=== PATIENT | female | born 2000 | race Caucasian/White ===

== ENCOUNTER 2020-10-07 07:06 | Emergency (ER) | payer OTHER, SELFPAY ==
--- NOTE | 2020-10-07 07:35 | ED.NAVMDI ---
HPI - Nausea/Vomiting/Diarrhea General Chief complaint: Nausea/Vomiting/Diarrhea Stated complaint: vomiting, abd pain Time Seen by Provider: 10/07/20 07:34 Source: patient and interpreter for the deaf Mode of arrival: ambulatory Limitations: no limitations History of Present Illness MD elicited complaint: nausea, vomiting and abdominal pain Onset (ago): day(s) (3) Description of vomiting: food contents and bilious Associated nausea: Yes Associated abdominal pain: Yes Location of pain: epigastric Pain consistency: constant Severity: moderate Quality: cramping Exacerbating factors: eating Relieving factors: none Context: marijuana use and other (had COVID vaccine first shot on Saturday) Associated symptoms: loss of appetite, malaise and nausea/vomiting Related Data Previous Rx's Medication Instructions Recorded ferrous sulfate 325 mg (65 mg 325 mg PO DAILY #30 tab 10/07/20 iron) tablet ondansetron 4 mg disintegrating 4 mg PO Q8H PRN #20 tab 10/07/20 tablet promethazine 25 mg rectal 25 mg SC Q6H PRN #12 ea 10/07/20 suppository Allergies Allergy/AdvReac Type Severity Reaction Status Date / Time No Known Allergies Allergy Unverified 10/29/19 19:20 [No Known Allergies*] Review of Systems Review of Systems: Constitutional : No Weight loss, No Fever, No Chills ENT/Mouth : No sore throat, No Rhinorrhea Eyes: No Swelling, No Redness Cardiovascular : No Chest Pain, No SOB, NoEdema Respiratory : No Cough, No Sputum, No Wheezing Gastrointestinal : Positive Nausea, Positive Vomiting, no Diarrhea, positive abdominal Pain, No Hematochezia, No Melena Genitourinary : No Dysuria, No Urinary Frequency, No Hematuria, No Urgency Musculoskeletal : No joint pain, No Myalgias, No Joint Swelling Skin : No Skin Lesions, No rash Neuro : No Weakness, No Numbness, No Dizziness, No Headache Psych : No Anxiety/Panic, No Depression Heme/Lymph: No Bruising, No Lymphadenopathy Endocrine : No Polyuria, No Polydipsia All other systems reviewed and are negative. Gastrointestinal: Gastrointestinal: Reports nausea PMFSH Past Medical History Attestation statement: The following information was validated with the patient. Medical History No known health problems Social History Social History (Updated 10/07/20 @ 07:51 by Vanessa Gonzalez DO) Patient Tobacco Use Status: Never used Tobacco Use of substances other than those prescribed or required for medical reasons: Yes Substance Use Type: Marijuana Advance Directives: No Advance Directives Information Provided: No Physical Exam Vital Signs: Vital Signs: Last Vital Signs Temp 98.7 F 10/07/20 07:36 Pulse 72 10/07/20 07:36 Resp 16 10/07/20 07:36 BP 133/81 10/07/20 07:36 Pulse Ox 98 10/07/20 07:36 Body Mass Index 25.4 Appearance: Alert. Oriented X3. Anxious mild acute distress. Active vomiting Eyes: Pupils equal, round and reactive to light. ENT: Pharynx normal. Neck: Normal inspection. Neck supple. CVS: Normal heart rate and rhythm. Pulses normal. Respiratory: No respiratory distress. Breath sounds normal. Abdomen: Soft and mild epigastric ttp no rebound or guarding Skin: Skin warm and dry. Normal skin color. Normal skin turgor. Extremities: No lower extremity edema. No calf ttp Neuro: Oriented X 3. No motor deficit. No sensory deficit. Course Course Course Narrative: H/H low denies GIB symptoms - likely heavy menses, n/v does not seem to correlate with anemia will start on Fe on her menses with a pad so guiac would have been positive, she denies GIB symptoms, she has been chewing ice for months now and has very heavy periods - suspect Fe loss from menorrhagia patient tolerating PO at this time - can be DC home MDM - Nausea/Vomiting/Diarrhea MDM Narrative Medical decision making narrative: 20 yo female with THC use recently now with c/o epigastric pain relieved with hot showers. Patient states it started after her COVID vaccine. At this time the patient will need labs IVF, IV anti-emetics, UA, dispo per results and findings. Did discuss this was likely due to THC use given her constellation of symptoms and heat to alleviate her pain. Lab Data Result diagrams: 10/07/20 07:59 10/07/20 07:59 Labs: Lab Results 10/07/20 10/07/20 10/07/20 Range/Units 07:59 07:59 07:59 WBC 10.0 (4.8-10.8) X10*3/uL RBC 4.17 L (4.20-5.50) X10*6/uL Hgb 7.2 L (12.0-16.0) g/dl Hct 25.6 L (37-47) % MCV 61.4 L (80-98) fL MCH 17.3 L (27.0-33.0) pg MCHC 28.1 L (31.0-35.0) g/dl RDW 21.7 H (11.0-16.0) % Plt Count 663 H (160-400) X10*3/uL MPV 9.6 (9.4-12.3) fL Immature Gran % (Auto) 0.4 (0.0-0.4) % Neut % (Auto) 88.3 H (45-73) % Lymph % (Auto) 7.3 L (20-40) % [place] % (Auto) 3.6 (2-11) % Eos % (Auto) 0.1 (0-4) % Baso % (Auto) 0.3 (0-2) % Lymph # (Auto) 0.7 L (1.2-4.9) X10*3/uL [place] # (Auto) 0.4 (0.1-1.2) X10*3/uL Eos # (Auto) 0.0 (0.0-0.4) X10*3/uL Baso # (Auto) 0.0 (0.0-0.2) X10*3/uL Abs Immat Gran (auto) 0.04 H (0.00-0.03) X10*3/uL Absolute Neuts (auto) 8.8 H (2.0-8.3) X10*3/uL Absolute Nucleated RBC 0.000 (0.0-0.012) X10*3/uL Nucleated RBC % (auto) 0.0 (0.0-0.2) /100WBC Smear Path Review SEE NOTE Sodium 139 (135-145) mmol/L Potassium 4.1 (3.3-5.1) mmol/L Chloride 108 (96-108) mmol/L Carbon Dioxide 21 L (22-29) mmol/L Anion Gap 14 (12-20) BUN 11 (9-16) mg/dL Creatinine 0.77 (0.5-1.4) mg/dL Estim Creat Clear Calc 109.8 Estimated GFR > 60 Random Glucose 139 H (60-115) mg/dL Calcium 9.6 (8.4-10.2) mg/dL Magnesium 2.2 (1.6-2.6) mg/dL Total Bilirubin 0.3 (0.0-1.0) mg/dL Direct Bilirubin 0.2 (0.0-0.5) mg/dL AST 16 (5-31) U/L ALT 6 (0-31) U/L Alkaline Phosphatase 49 (39-117) U/L Total Protein 7.9 (6.5-8.0) g/dL Albumin 4.5 (3.5-5.0) g/dL Lipase 16 (8-78) U/L Beta HCG, Quant < 2 mIU/mL Urine Color Urine Appearance Urine pH (5.0-8.0) Ur Specific [place] (1.005-1.025) Urine Protein (NEG-TRACE) MG/DL Urine Glucose (UA) (NEG) MG/DL Urine Ketones (NEG) MG/DL Urine Blood (NEG) Urine Nitrite (NEG) Ur Leukocyte Esterase (NEG) Urine Opiates Screen (Not Detect) Urine Fentanyl Screen (Not Detect) Ur Barbiturates Screen (Not Detect) Ur Phencyclidine Scrn (Not Detect) Ur Amphetamines Screen (Not Detect) U Benzodiazepines Scrn (Not Detect) Urine Cocaine Screen (Not Detect) U Marijuana (THC) Screen (Not Detect) COVID-19 (TUNDE) Negative (Negative) COVID-19 Clin Com See Note 10/07/20 10/07/20 Range/Units 10:10 10:10 WBC (4.8-10.8) X10*3/uL RBC (4.20-5.50) X10*6/uL Hgb (12.0-16.0) g/dl Hct (37-47) % MCV (80-98) fL MCH (27.0-33.0) pg MCHC (31.0-35.0) g/dl RDW (11.0-16.0) % Plt Count (160-400) X10*3/uL MPV (9.4-12.3) fL Immature Gran % (Auto) (0.0-0.4) % Neut % (Auto) (45-73) % Lymph % (Auto) (20-40) % [place] % (Auto) (2-11) % Eos % (Auto) (0-4) % Baso % (Auto) (0-2) % Lymph # (Auto) (1.2-4.9) X10*3/uL [place] # (Auto) (0.1-1.2) X10*3/uL Eos # (Auto) (0.0-0.4) X10*3/uL Baso # (Auto) (0.0-0.2) X10*3/uL Abs Immat Gran (auto) (0.00-0.03) X10*3/uL Absolute Neuts (auto) (2.0-8.3) X10*3/uL Absolute Nucleated RBC (0.0-0.012) X10*3/uL Nucleated RBC % (auto) (0.0-0.2) /100WBC Smear Path Review Sodium (135-145) mmol/L Potassium (3.3-5.1) mmol/L Chloride (96-108) mmol/L Carbon Dioxide (22-29) mmol/L Anion Gap (12-20) BUN (9-16) mg/dL Creatinine (0.5-1.4) mg/dL Estim Creat Clear Calc Estimated GFR Random Glucose (60-115) mg/dL Calcium (8.4-10.2) mg/dL Magnesium (1.6-2.6) mg/dL Total Bilirubin (0.0-1.0) mg/dL Direct Bilirubin (0.0-0.5) mg/dL AST (5-31) U/L ALT (0-31) U/L Alkaline Phosphatase (39-117) U/L Total Protein (6.5-8.0) g/dL Albumin (3.5-5.0) g/dL Lipase (8-78) U/L Beta HCG, Quant mIU/mL Urine Color RED Urine Appearance CLOUDY Urine pH 7.5 (5.0-8.0) Ur Specific [place] 1.015 (1.005-1.025) Urine Protein 1+ H (NEG-TRACE) MG/DL Urine Glucose (UA) NEG (NEG) MG/DL Urine Ketones 40 (NEG) MG/DL Urine Blood 3+ H (NEG) Urine Nitrite NEG (NEG) Ur Leukocyte Esterase TRACE H (NEG) Urine Opiates Screen Not Detected (Not Detect) Urine Fentanyl Screen Not Detected (Not Detect) Ur Barbiturates Screen Not Detected (Not Detect) Ur Phencyclidine Scrn Not Detected (Not Detect) Ur Amphetamines Screen Not Detected (Not Detect) U Benzodiazepines Scrn Not Detected (Not Detect) Urine Cocaine Screen Not Detected (Not Detect) U Marijuana (THC) Screen POSITIVE H (Not Detect) COVID-19 (TUNDE) (Negative) COVID-19 Clin Com Discharge Plan Discharge Clinical Impression: Vomiting Qualifiers: Vomiting type: unspecified Vomiting Intractability: non-intractable Nausea presence: with nausea Qualified Code(s): R11.2 - Nausea with vomiting, unspecified Iron deficiency anemia Qualifiers: Iron deficiency anemia type: other iron deficiency Qualified Code(s): D50.8 - Other iron deficiency anemias Instructions: Iron Deficiency Anemia (ED), Acute Nausea and Vomiting (ED) Additional Instructions: return to ED for any worsening symptoms or concerns Prescriptions: New promethazine 25 mg suppository 25 mg SC Q6H PRN (Reason: nausea and vomiting) Qty: 12 RF: 0 ondansetron 4 mg tablet,disintegrating 4 mg PO Q8H PRN (Reason: nausea and vomiting) Qty: 20 RF: 0 ferrous sulfate 325 mg (65 mg iron) tablet 325 mg PO DAILY Qty: 30 RF: 2 Referrals: Genevieve Dennison MD [Physician] - 2 weeks Stand Alone Forms: Work/School Release Print Language: Arabic
[2020-10-07 07:36] VITALS: BP 133/81; PULSE 72; RESP 16; TEMP 37.1; O2SAT 98; BMI 25.4
[2020-10-07 08:02] LABS: MANUAL DIFF FLAG NO
[2020-10-07] MEDS: diphenhydrAMINE HCL 50 MG/ML VIAL 25 MG IVPUSH (08:05)
[2020-10-07] MEDS: Metoclopramide HCl 10 MG/2 ML VIAL IVPUSH (08:05)
[2020-10-07] MEDS: Lactated Ringers 1,000 ML 999 ML IV (08:05)
[2020-10-07] MEDS: Famotidine/PF 20 MG/2 ML VIAL IVPUSH (08:05)
[2020-10-07 08:17] LABS: Basophils Percent Auto 0.3 % (0-2); Eosinophils Percent Auto 0.1 % (0-4); Imm Gran Abs Auto 0.04 X10*3/uL (0.00-0.03); Imm Gran Pct Auto 0.4 % (0.0-0.4); Lymphocytes Absolute Auto 0.7 X10*3/uL (1.2-4.9); Lymphocytes Percent Auto 7.3 % (20-40); Mean Corpuscular HGB Conc 28.1 g/dl (31.0-35.0); Mean Corpuscular Hemoglobin 17.3 pg (27.0-33.0); Mean Corpuscular Volume 61.4 fL (80-98); Mean Platelet Volume 9.6 fL (9.4-12.3); Monocytes Absolute Auto 0.4 X10*3/uL (0.1-1.2); Monocytes Percent Auto 3.6 % (2-11); Neutrophils Absolute Auto 8.8 X10*3/uL (2.0-8.3); Neutrophils Percent Auto 88.3 % (45-73); Platelet Count 663 X10*3/uL (160-400); Red Blood Count 4.17 X10*6/uL (4.20-5.50); Red Cell Distribution Width 21.7 % (11.0-16.0)
[2020-10-07 08:18] LABS: Hematocrit 25.6 % (37-47); Hemoglobin 7.2 g/dl (12.0-16.0)
[2020-10-07 08:27] LABS: COVID-19 Test Negative (Negative)
[2020-10-07 08:32] LABS: Alanine Aminotransferase 6 U/L (0-31); Albumin Level 4.5 g/dL (3.5-5.0); Alkaline Phosphatase 49 U/L (39-117); Anion Gap 14 (12-20); Aspartate Amino Transferase 16 U/L (5-31); Bilirubin Direct 0.2 mg/dL (0.0-0.5); Bilirubin Total 0.3 mg/dL (0.0-1.0); Blood Urea Nitrogen 11 mg/dL (9-16); Calcium 9.6 mg/dL (8.4-10.2); Carbon Dioxide 21 mmol/L (22-29); Chloride 108 mmol/L (96-108); Creatinine Clr Calc Pharmacy 109.8; Estimated Glomerular Filt Rate > 60; Glucose Random 139 mg/dL (60-115); Lipase 16 U/L (8-78); Magnesium 2.2 mg/dL (1.6-2.6); Potassium 4.1 mmol/L (3.3-5.1); Sodium 139 mmol/L (135-145); Total Protein 7.9 g/dL (6.5-8.0)
[2020-10-07 09:39] LABS: HCG Quantitative < 2 mIU/mL
[2020-10-07] MEDS: ondansetron HCL 4 MG/2 ML VIAL IVPUSH (10:07)
[2020-10-07 10:35] LABS: Appearance Urine CLOUDY; Color Urine RED; Glucose Urine UA NEG (NEG); Leukocyte Esterase Urine TRACE (NEG); Nitrite Urine NEG (NEG); PH 7.5 (5.0-8.0); Specific Gravity - Urine 1.015 (1.005-1.025); UACC Culture Trigger YES; Urine Blood 3+ (NEG); Urine Ketones 40 MG/DL (NEG); Urine Protein 1+ MG/DL (NEG-TRACE)
[2020-10-07 10:46] LABS: Amphetamine Screen Urine Not Detected (Not Detect); Barbiturates, Urine Not Detected (Not Detect); Benzodiazepines Screen Urine Not Detected (Not Detect); Cannabinoid Screen Urine POSITIVE (Not Detect); Cocaine Screen Urine Not Detected (Not Detect); Fentanyl, urine Not Detected (Not Detect); Opiate Screen Urine Not Detected (Not Detect); Phencyclidine Screen Urine Not Detected (Not Detect)
[2020-10-07 11:03] LABS: Bacteria Urine TRACE /LPF; RBC Urine TNTC /HPF (0); Squamous Epithelial Cell Urine 1+ /LPF
== END 2020-10-07 11:06 | disposition home or self-care (01) ==
PROVIDERS: Emergency Provider Emergency Medicine
DX: D50.8 Other iron deficiency anemias (principal); R11.2 Nausea with vomiting, unspecified; R10.13 Epigastric pain; Z20.822 Contact with and (suspected) exposure to COVID-19; F12.90 Cannabis use, unspecified, uncomplicated
CPT/HCPCS: 36415; 80048; 80076; 80307; 81001; 83690; 83735; 84702; 85025; 87086; 87147; 87635; 96361; 96374; 96375; 99284; J1200; J2405; J2765

== ENCOUNTER 2020-10-07 16:11 | Emergency (ER) | payer OTHER, SELFPAY | END 2020-10-07 17:53 | disposition left against medical advice (07) | PROVIDERS: Emergency Provider Emergency Medicine | DX: Z04.1 Encounter for examination and observation following transport accident (principal); M54.9 Dorsalgia, unspecified; M54.2 Cervicalgia ==

== ENCOUNTER → 2020-10-26 14:06 | Outpatient (BNV) | payer OTHER, SELFPAY | PROVIDERS: Visit Provider Internal Medicine | DX: D50.9 Iron deficiency anemia, unspecified (principal) | CPT/HCPCS: 99203; 99212; 99213; 99214 ==

== ENCOUNTER 2020-11-24 08:17 | Outpatient (REF) | payer OTHER, SELFPAY | END 2020-11-24 08:18 | disposition home or self-care (01) | LOC: HO.MDS 08:17 | PROVIDERS: PCP Physician Assistant; Visit Provider Internal Medicine | DX: D50.9 Iron deficiency anemia, unspecified (principal) | CPT/HCPCS: 96365; 96375; J1200; J1750; J2405 ==

== ENCOUNTER 2021-02-16 08:35 | Outpatient (REF) | payer OTHER, SELFPAY | END 2021-02-16 08:36 | disposition home or self-care (01) | LOC: HO.MDS 08:35 | PROVIDERS: Visit Provider Internal Medicine | DX: D50.9 Iron deficiency anemia, unspecified (principal) | CPT/HCPCS: 96365; 96375; J2916; Q0163 ==

== ENCOUNTER 2021-03-03 10:56 | Outpatient (REF) | payer OTHER, SELFPAY | END 2021-03-03 10:57 | disposition home or self-care (01) | LOC: HO.MDS 10:56 | PROVIDERS: Visit Provider Internal Medicine | DX: D50.9 Iron deficiency anemia, unspecified (principal) | CPT/HCPCS: 96365; 96375; J2916; Q0163 ==

== ENCOUNTER 2021-04-17 10:00 | Outpatient (REF) | payer OTHER, SELFPAY | END 2021-04-17 10:01 | disposition home or self-care (01) | LOC: HO.MDS 10:00 | PROVIDERS: Visit Provider Internal Medicine | DX: D50.9 Iron deficiency anemia, unspecified (principal) | CPT/HCPCS: 96365; 96375; J2916; Q0163 ==

== ENCOUNTER 2021-05-09 12:42 | Outpatient (REF) | payer OTHER, SELFPAY | END 2021-05-09 12:43 | disposition home or self-care (01) | LOC: HO.MDS 12:42 | PROVIDERS: Visit Provider Internal Medicine | DX: D50.9 Iron deficiency anemia, unspecified (principal) | CPT/HCPCS: 96365; 96375; J2916; Q0163 ==

== ENCOUNTER 2021-05-17 08:32 | Outpatient (REF) | payer OTHER, SELFPAY | END 2021-05-17 08:33 | disposition home or self-care (01) | LOC: HO.MDS 08:32 | PROVIDERS: Visit Provider Internal Medicine | DX: D50.9 Iron deficiency anemia, unspecified (principal) | CPT/HCPCS: 96365; 96375; J2916; Q0163 ==

== ENCOUNTER 2021-05-25 12:58 | Outpatient (REF) | payer OTHER, SELFPAY | END 2021-05-25 12:59 | disposition home or self-care (01) | LOC: HO.MDS 12:58 | PROVIDERS: Visit Provider Internal Medicine | DX: D50.9 Iron deficiency anemia, unspecified (principal) | CPT/HCPCS: 96365; 96375; J2916; Q0163 ==

== ENCOUNTER 2021-11-08 11:50 | Outpatient (REF) | payer OTHER, SELFPAY | END 2021-11-08 11:51 | disposition home or self-care (01) | LOC: HO.MDS 11:50 | PROVIDERS: Visit Provider Internal Medicine | DX: D50.9 Iron deficiency anemia, unspecified (principal) | CPT/HCPCS: 96365; J1756 ==

== ENCOUNTER 2022-05-13 23:00 | Emergency (ER) | payer OTHER, SELFPAY ==
[2022-05-13 23:08] VITALS: BP 145/85; PULSE 89; RESP 18; TEMP 36.7; O2SAT 99; BMI 25.6
[2022-05-14 01:39] LABS: Basophils Percent Auto 0.3 % (0-2); Hematocrit 40.7 % (37.0-47.0); Hemoglobin 13.5 g/dl (12.0-16.0); Imm Gran Abs Auto 0.04 X10*3/uL (0.00-0.03); Imm Gran Pct Auto 0.3 % (0.0-0.4); Lymphocytes Absolute Auto 0.9 X10*3/uL (1.2-4.9); Lymphocytes Percent Auto 7.2 % (20-40); MANUAL DIFF FLAG NO; Mean Corpuscular HGB Conc 33.2 g/dl (31.0-35.0); Mean Corpuscular Hemoglobin 28.6 pg (27.0-33.0); Mean Corpuscular Volume 86.2 fL (80.0-98.0); Mean Platelet Volume 9.9 fL (9.4-12.3); Monocytes Absolute Auto 0.4 X10*3/uL (0.1-1.2); Monocytes Percent Auto 2.8 % (2-11); Neutrophils Absolute Auto 11.3 x10*3/uL (2.0-8.3); Neutrophils Percent Auto 89.4 % (45-73); Platelet Count 331 X10*3/uL (160-400); Red Blood Count 4.72 X10*6/uL (4.20-5.50); Red Cell Distribution Width 13.6 % (11.0-16.0); White Blood Count 12.6 X10*3/uL (4.8-10.8)
[2022-05-14 01:56] LABS: Alanine Aminotransferase 11 U/L (0-31); Albumin Level 4.8 g/dL (3.5-5.0); Alkaline Phosphatase 59 U/L (39-117); Anion Gap 15 (12-20); Aspartate Amino Transferase 13 U/L (5-31); Bilirubin Total 0.5 mg/dL (0.0-1.0); Blood Urea Nitrogen 9 mg/dL (9-16); Calcium 9.6 mg/dL (8.4-10.2); Carbon Dioxide 20 mmol/L (22-29); Chloride 106 mmol/L (96-108); Creatinine Clr Calc Pharmacy 103.9; Estimated Glomerular Filt Rate > 60; Glucose Random 120 mg/dL (60-115); Lipase 9 U/L (8-78); Potassium 3.8 mmol/L (3.3-5.1); Sodium 137 mmol/L (135-145)
--- NOTE | 2022-05-14 02:20 | ED.GENADULT ---
HPI - General Adult General Chief complaint: Abdominal Pain Stated complaint: low iron, abd pain, vomiting Time Seen by Provider: 05/14/22 02:09 Source: patient Mode of arrival: ambulatory Limitations: language barrier History of Present Illness HPI narrative: Patient multiple complaints gets iron transfusion for anemia which she got last month due for her menstrual periods feeling dizzy blurred vision constipated for last 3 days nausea unable to sleep. No urinary complaints no fever or chills no cold symptoms Related Data Previous Rx's Medication Instructions Recorded ondansetron 4 mg disintegrating 4 mg PO Q8H PRN nausea and 10/07/20 tablet vomiting #20 tabs Allergies Allergy/AdvReac Type Severity Reaction Status Date / Time dextran sulfate Allergy n/v Verified 05/13/22 23:13 tachycardia cough Review of Systems Review of Systems: Yes all other systems are reviewed and are negative [facility] Past Medical History Medical History No known health problems Surgical History No history of previous surgery Social History Social History Household Members: Family Housing: Apartment Are you a primary child care lead teacher to a significant other at home: No Do you presently have visiting nurse or other home services: No Alcohol intake: former Patient Tobacco Use Status: Never used Tobacco Substance Use Type: Marijuana Advance Directives: No Advance Directives Information Provided: No service: No Current occupational status: unemployed Physical Exam ED Vital Signs: Vital Signs - 24 hr 05/13/22 23:08 05/14/22 04:00 Temperature 98.1 F 98.2 F Pulse Rate 89 84 Respiratory Rate 18 14 Blood Pressure 145/85 H 105/67 Pulse Oximetry 99 97 Oxygen Delivery Method Room Air Room Air BMI result Body Mass Index 25.6 Appearance: Alert. Oriented X3. No acute distress and she. Eyes: No pallor or icterus ENT: Pharynx normal. Oral Mucosa moist Neck: Normal inspection. Neck supple. CVS: Normal heart rate and rhythm. Pulses normal. Respiratory: No respiratory distress. Equal air entry bilateral, no wheezing/rales/rhonchi Abdomen: Soft and nontender. Bowel sounds are present, no mass palpable, no CVA tenderness Skin: Skin warm and dry. Normal skin color. Normal skin turgor. Extremities: No lower extremity edema. No calf tenderness Neuro: Oriented X 3. No motor deficit. Medications Administered Discontinued Medications Generic Name Dose Route Start Last Admin Trade Name Freq PRN Reason Stop Dose Admin Sodium Chloride 1,000 mls @ 999 mls/hr 05/14/22 02:27 05/14/22 04:07 Ns IV 05/14/22 03:27 Infused .Q1H1M ONE Infusion Magnesium Hydroxide 30 ml 05/14/22 02:27 05/14/22 02:44 Milk Of Magnesia 30 Ml Oral.Susp PO 05/14/22 02:28 30 ml ONCE ONE Administration Ondansetron HCl 4 mg 05/14/22 02:27 05/14/22 02:44 Ondansetron Hcl 4 Mg/2 Ml Vial IVPUSH 05/14/22 02:28 4 mg ONCE ONE Administration Medical Decision Making Medical Decision Making [facility] Narrative: Patient nonspecific multiple complaints workup negative improved after IV fluids was given milk of magnesia for constipation advised to follow-up with PCP Lab Data [facility] Lab Attestation statement: I reviewed the patient's lab results. 05/14/22 01:34 05/14/22 01:34 Labs: Lab Results 05/14/22 05/14/22 05/14/22 Range/Units 01:34 01:34 02:51 WBC 12.6 H (4.8-10.8) X10*3/uL RBC 4.72 (4.20-5.50) X10*6/uL Hgb 13.5 (12.0-16.0) g/dl Hct 40.7 (37.0-47.0) % MCV 86.2 (80.0-98.0) fL MCH 28.6 (27.0-33.0) pg MCHC 33.2 (31.0-35.0) g/dl RDW 13.6 (11.0-16.0) % Plt Count 331 (160-400) X10*3/uL MPV 9.9 (9.4-12.3) fL Immature Gran % (Auto) 0.3 (0.0-0.4) % Neut % (Auto) 89.4 H (45-73) % Lymph % (Auto) 7.2 L (20-40) % [place] % (Auto) 2.8 (2-11) % Eos % (Auto) 0.0 (0-4) % Baso % (Auto) 0.3 (0-2) % Lymph # (Auto) 0.9 L (1.2-4.9) X10*3/uL [place] # (Auto) 0.4 (0.1-1.2) X10*3/uL Eos # (Auto) 0.0 (0.0-0.4) X10*3/uL Baso # (Auto) 0.0 (0.0-0.2) X10*3/uL Abs Immat Gran (auto) 0.04 H (0.00-0.03) X10*3/uL Absolute Neuts (auto) 11.3 H (2.0-8.3) x10*3/uL Absolute Nucleated RBC 0.000 (0.0-0.012) X10*3/uL Nucleated RBC % (auto) 0.0 (0.0-0.2) /100WBC Sodium 137 (135-145) mmol/L Potassium 3.8 (3.3-5.1) mmol/L Chloride 106 (96-108) mmol/L Carbon Dioxide 20 L (22-29) mmol/L Anion Gap 15 (12-20) BUN 9 (9-16) mg/dL Creatinine 0.75 (0.5-1.4) mg/dL Estim Creat Clear Calc 103.9 Estimated GFR > 60 Random Glucose 120 H (60-115) mg/dL Calcium 9.6 (8.4-10.2) mg/dL Total Bilirubin 0.5 (0.0-1.0) mg/dL AST 13 (5-31) U/L ALT 11 (0-31) U/L Alkaline Phosphatase 59 (39-117) U/L Total Protein 8.0 (6.5-8.0) g/dL Albumin 4.8 (3.5-5.0) g/dL Lipase 9 (8-78) U/L Urine Color Yellow Urine Appearance Clear Urine pH 7.0 (5.0-9.0) Ur Specific [place] >= 1.030 H (1.005-1.025) Urine Protein Trace (Neg-Trace) mg/dL Urine Glucose (UA) Negative (Negative) mg/dL Urine Ketones >=160 (Negative) mg/dL Urine Blood Negative (Negative) Urine Nitrite Negative (Negative) Ur Leukocyte Esterase Negative (Negative) Urine Test (NEGATIVE) 05/14/22 Range/Units 02:51 WBC (4.8-10.8) X10*3/uL RBC (4.20-5.50) X10*6/uL Hgb (12.0-16.0) g/dl Hct (37.0-47.0) % MCV (80.0-98.0) fL MCH (27.0-33.0) pg MCHC (31.0-35.0) g/dl RDW (11.0-16.0) % Plt Count (160-400) X10*3/uL MPV (9.4-12.3) fL Immature Gran % (Auto) (0.0-0.4) % Neut % (Auto) (45-73) % Lymph % (Auto) (20-40) % [place] % (Auto) (2-11) % Eos % (Auto) (0-4) % Baso % (Auto) (0-2) % Lymph # (Auto) (1.2-4.9) X10*3/uL [place] # (Auto) (0.1-1.2) X10*3/uL Eos # (Auto) (0.0-0.4) X10*3/uL Baso # (Auto) (0.0-0.2) X10*3/uL Abs Immat Gran (auto) (0.00-0.03) X10*3/uL Absolute Neuts (auto) (2.0-8.3) x10*3/uL Absolute Nucleated RBC (0.0-0.012) X10*3/uL Nucleated RBC % (auto) (0.0-0.2) /100WBC Sodium (135-145) mmol/L Potassium (3.3-5.1) mmol/L Chloride (96-108) mmol/L Carbon Dioxide (22-29) mmol/L Anion Gap (12-20) BUN (9-16) mg/dL Creatinine (0.5-1.4) mg/dL Estim Creat Clear Calc Estimated GFR Random Glucose (60-115) mg/dL Calcium (8.4-10.2) mg/dL Total Bilirubin (0.0-1.0) mg/dL AST (5-31) U/L ALT (0-31) U/L Alkaline Phosphatase (39-117) U/L Total Protein (6.5-8.0) g/dL Albumin (3.5-5.0) g/dL Lipase (8-78) U/L Urine Color Urine Appearance Urine pH (5.0-9.0) Ur Specific [place] (1.005-1.025) Urine Protein (Neg-Trace) mg/dL Urine Glucose (UA) (Negative) mg/dL Urine Ketones (Negative) mg/dL Urine Blood (Negative) Urine Nitrite (Negative) Ur Leukocyte Esterase (Negative) Urine Test NEGATIVE (NEGATIVE) Discharge Plan Discharge Clinical Impression: Weakness Patient Disposition: Home, Self-Care Instructions: Weakness (ED) Additional Instructions: Drink plenty of fluids Follow-up with your PCP Your lab workup is normal , you are not anemic Prescriptions: No Action ondansetron 4 mg tablet,disintegrating 4 mg PO Q8H PRN (Reason: nausea and vomiting) Qty: 20 0RF
[2022-05-14] MEDS: 0.9 % Sodium Chloride 1,000 ML 999 ML IV (02:40)
[2022-05-14] MEDS: ondansetron HCL 4 MG/2 ML VIAL IVPUSH (02:44)
[2022-05-14] MEDS: Milk of Magnesia 30 ML ORAL.SUSP PO (02:44)
--- NOTE | 2022-05-14 02:48 | PC.NURSE ---
late entry- iv placed by this rn, bloodwork obtained and sent down to lab. partner at [facility].
--- NOTE | 2022-05-14 02:48 | PC.NURSE ---
pt medicated according to mar
[2022-05-14 02:59] LABS: Appearance Urine Clear; Color Urine Yellow; Glucose Urine UA Negative (Negative); Leukocyte Esterase Urine Negative (Negative); Nitrite Urine Negative (Negative); Specific Gravity - Urine >= 1.030 (1.005-1.025); Urine Blood Negative (Negative); Urine Ketones >=160 mg/dL (Negative); Urine Protein Trace mg/dL (Neg-Trace)
[2022-05-14 03:00] LABS: UPreg QC Valid YES; Urine Pregnancy NEGATIVE (NEGATIVE)
[2022-05-14 04:00] VITALS: BP 105/67; PULSE 84; RESP 14; TEMP 36.8; O2SAT 97
--- NOTE | 2022-05-14 04:32 | PC.NURSE ---
iv removed at discharge. counselor aid utilized at discharge. pt provided with discharge packet. pt verbalized understanding of discharge plan. pt ambulatory at discharge. pt skin pwd
== END 2022-05-14 04:43 | disposition home or self-care (01) ==
PROVIDERS: Emergency Provider Internal Medicine; PCP Emergency Medicine Emergency Medical Services
DX: R53.1 Weakness (principal); D64.9 Anemia, unspecified; R42 Dizziness and giddiness; Z79.899 Other long term (current) drug therapy
CPT/HCPCS: 36415; 80053; 81003; 81025; 83690; 85025; 96361; 96374; 99284; J2405

== ENCOUNTER 2022-05-15 12:31 | Emergency (ER) | payer OTHER, SELFPAY ==
[2022-05-15 12:55] VITALS: BP 112/79; PULSE 80; RESP 19; TEMP 36.6; O2SAT 98; BMI 24.3
--- NOTE | 2022-05-15 13:03 | ED_ITS ---
HPI - General Adult General Chief complaint: Headache Stated complaint: Stomach LB\ow Blood Pressure Time Seen by Provider: 05/15/22 13:31 Related Data Previous Rx's ?Medication ?Instructions ?Recorded ondansetron 4 mg disintegrating 4 mg PO Q8H PRN nausea and 10/07/20 tablet vomiting #20 tabs ondansetron 4 mg disintegrating 4 mg PO Q8H PRN nausea and 05/15/22 tablet vomiting #14 tabs omeprazole 20 mg capsule,delayed 20 mg PO DAILY 30 days #30 caps 05/16/22 release ondansetron 4 mg disintegrating 4 mg PO Q8H PRN nausea and 01/30/23 tablet vomiting #20 tabs Allergies Allergy/AdvReac Type Severity Reaction Status Date / Time dextran sulfate Allergy n/v Verified 01/30/23 11:38 tachycardia cough PMFSH Past Medical History Medical History No known health problems Surgical History No history of previous surgery Social History Social History Household Members: Family Housing: Apartment Are you a primary health care facilities inspector to a significant other at home: No Do you presently have visiting nurse or other home services: No Alcohol intake: never Patient Tobacco Use Status: Never used Tobacco Substance Use Type: Marijuana Advance Directives: No service: No Current occupational status: unemployed Physical Exam ED Vital Signs: Vital Signs - 24 hr 05/15/22 12:55 Temperature 98 F Pulse Rate 80 Respiratory Rate 19 Blood Pressure 112/79 Pulse Oximetry 98 Oxygen Delivery Method Room Air BMI result Body Mass Index 24.3 Course Course Course Narrative: This is an RME: Additional HPI, ROS, PE not included below will be deferred to primary provider. 21-year-old female history of iron deficiency anemia presents for evaluation of fatigue, malaise headache, and diffuse abdominal pain for past 2 days. She reports she is unable to keep anything down by mouth. Was seen here yesterday and diagnosed with weakness. Is not feeling better. Physical exam benign. Plan labs, urine, test, viral test Medications Administered Discontinued Medications Generic Name Dose Route Start Last Admin Trade Name Freq PRN Reason Stop Dose Admin Ketorolac Tromethamine 30 mg 05/15/22 13:04 05/15/22 13:52 Ketorolac Tromethamine 15 Mg/Ml Vial IM 05/15/22 13:05 30 mg ONCE ONE Administration Medical Decision Making Lab Data 05/15/22 13:15 05/15/22 13:15 Labs: Lab Results 05/15/22 05/15/22 Range/Units 13:15 13:49 WBC 8.3 (4.8-10.8) X10*3/uL RBC 4.78 (4.20-5.50) X10*6/uL Hgb 13.4 (12.0-16.0) g/dl Hct 40.7 (37.0-47.0) % MCV 85.1 (80.0-98.0) fL MCH 28.0 (27.0-33.0) pg MCHC 32.9 (31.0-35.0) g/dl RDW 13.5 (11.0-16.0) % Plt Count 332 (160-400) X10*3/uL MPV 9.3 L (9.4-12.3) fL Immature Gran % (Auto) 0.1 (0.0-0.4) % Neut % (Auto) 66.5 (45-73) % Lymph % (Auto) 26.3 (20-40) % [place] % (Auto) 6.5 (2-11) % Eos % (Auto) 0.2 (0-4) % Baso % (Auto) 0.4 (0-2) % Lymph # (Auto) 2.2 (1.2-4.9) X10*3/uL [place] # (Auto) 0.5 (0.1-1.2) X10*3/uL Eos # (Auto) 0.0 (0.0-0.4) X10*3/uL Baso # (Auto) 0.0 (0.0-0.2) X10*3/uL Abs Immat Gran (auto) 0.01 (0.00-0.03) X10*3/uL Absolute Neuts (auto) 5.5 (2.0-8.3) x10*3/uL Absolute Nucleated RBC 0.000 (0.0-0.012) X10*3/uL Nucleated RBC % (auto) 0.0 (0.0-0.2) /100WBC Sodium 140 (135-145) mmol/L Potassium 3.8 (3.3-5.1) mmol/L Chloride 106 (96-108) mmol/L Carbon Dioxide 21 L (22-29) mmol/L Anion Gap 17 (12-20) BUN 7 L (9-16) mg/dL Creatinine 0.79 (0.5-1.4) mg/dL Estim Creat Clear Calc 96.3 Estimated GFR > 60 Random Glucose 96 (60-115) mg/dL Calcium 9.6 (8.4-10.2) mg/dL Magnesium 2.2 (1.6-2.6) mg/dL Total Bilirubin 0.6 (0.0-1.0) mg/dL AST 12 (5-31) U/L ALT 8 (0-31) U/L Alkaline Phosphatase 56 (39-117) U/L Total Protein 7.7 (6.5-8.0) g/dL Albumin 4.5 (3.5-5.0) g/dL Urine Color Yellow Urine Appearance Clear Urine pH 6.0 (5.0-9.0) Ur Specific [place] 1.025 (1.005-1.025) Urine Protein Negative (Neg-Trace) mg/dL Urine Glucose (UA) Negative (Negative) mg/dL Urine Ketones Trace (Negative) mg/dL Urine Blood Negative (Negative) Urine Nitrite Negative (Negative) Ur Leukocyte Esterase Negative (Negative) Urine Test NEGATIVE (NEGATIVE) COVID-19 (TUNDE) Negative (Negative) COVID-19 Clin Com See Note Influenza Type A (VINITA) Negative (Negative) Influenza Type B (VINITA) Negative (Negative) Influenza A & B Note See Note Discharge Plan Discharge Clinical Impression: Headache Patient Disposition: Home, Self-Care Instructions: Acute Headache (ED) Prescriptions: New ondansetron 4 mg tablet,disintegrating 4 mg PO Q8H PRN (Reason: nausea and vomiting) Qty: 14 0RF No Action ondansetron 4 mg tablet,disintegrating 4 mg PO Q8H PRN (Reason: nausea and vomiting) Qty: 20 0RF ondansetron 4 mg tablet,disintegrating 4 mg PO Q8H PRN (Reason: nausea and vomiting) Qty: 20 0RF omeprazole 20 mg capsule,delayed release(DR/EC) 20 mg PO DAILY 30 Days Qty: 30 0RF Interventions: ED Discharge Assessment Last Done: 05/15/22 16:43 Discharge Date/Time: 05/15/22 16:46 Print Language: Mohawk
[2022-05-15 13:19] LABS: MANUAL DIFF FLAG NO
[2022-05-15 13:24] LABS: Basophils Percent Auto 0.4 % (0-2); Eosinophils Percent Auto 0.2 % (0-4); Hematocrit 40.7 % (37.0-47.0); Hemoglobin 13.4 g/dl (12.0-16.0); Imm Gran Abs Auto 0.01 X10*3/uL (0.00-0.03); Imm Gran Pct Auto 0.1 % (0.0-0.4); Lymphocytes Absolute Auto 2.2 X10*3/uL (1.2-4.9); Lymphocytes Percent Auto 26.3 % (20-40); Mean Corpuscular HGB Conc 32.9 g/dl (31.0-35.0); Mean Corpuscular Volume 85.1 fL (80.0-98.0); Mean Platelet Volume 9.3 fL (9.4-12.3); Monocytes Absolute Auto 0.5 X10*3/uL (0.1-1.2); Monocytes Percent Auto 6.5 % (2-11); Neutrophils Absolute Auto 5.5 x10*3/uL (2.0-8.3); Neutrophils Percent Auto 66.5 % (45-73); Platelet Count 332 X10*3/uL (160-400); Red Blood Count 4.78 X10*6/uL (4.20-5.50); Red Cell Distribution Width 13.5 % (11.0-16.0); White Blood Count 8.3 X10*3/uL (4.8-10.8)
[2022-05-15 13:45] LABS: Alanine Aminotransferase 8 U/L (0-31); Albumin Level 4.5 g/dL (3.5-5.0); Alkaline Phosphatase 56 U/L (39-117); Anion Gap 17 (12-20); Aspartate Amino Transferase 12 U/L (5-31); Bilirubin Total 0.6 mg/dL (0.0-1.0); Blood Urea Nitrogen 7 mg/dL (9-16); Calcium 9.6 mg/dL (8.4-10.2); Carbon Dioxide 21 mmol/L (22-29); Chloride 106 mmol/L (96-108); Creatinine Clr Calc Pharmacy 96.3; Estimated Glomerular Filt Rate > 60; Glucose Random 96 mg/dL (60-115); Magnesium 2.2 mg/dL (1.6-2.6); Potassium 3.8 mmol/L (3.3-5.1); Sodium 140 mmol/L (135-145); Total Protein 7.7 g/dL (6.5-8.0)
[2022-05-15 13:49] LABS: COVID-19 Test Negative (Negative); IDNOW Serial# 9DB6401D; IDNOW Serial# BCCEAD1C; Influenza A Negative (Negative); Influenza B2 Negative (Negative)
[2022-05-15] MEDS: Ketorolac Tromethamine 15 MG/ML VIAL 30 MG IM (13:52)
--- NOTE | 2022-05-15 13:54 | PC.NURSE ---
patient a&ox3, vss, pt states she has had a headache that began this morning, pt did not take medication at home for the headache, pt is light sensitive and has had associated nausea. neuro intact, pt medicated with IM pain medication, call [facility] within reach, will continue to monitor.
[2022-05-15 14:12] LABS: Appearance Urine Clear; Color Urine Yellow; Glucose Urine UA Negative (Negative); Leukocyte Esterase Urine Negative (Negative); Nitrite Urine Negative (Negative); Specific Gravity - Urine 1.025 (1.005-1.025); UPreg QC Valid YES; Urine Blood Negative (Negative); Urine Ketones Trace mg/dL (Negative); Urine Pregnancy NEGATIVE (NEGATIVE); Urine Protein Negative (Neg-Trace)
[2022-05-15 15:16] VITALS: BP 112/77; PULSE 73; RESP 14; TEMP 37; O2SAT 98
--- NOTE | 2022-05-15 15:18 | ED.HA ---
HPI - Headache General Chief Complaint: Headache Stated Complaint: Stomach LB\ow Blood Pressure Time Seen by Provider: 05/15/22 13:31 Source: patient and family Limitations: no limitations History of Present Illness HPI Narrative: Patient presenting with headache. She is seen here yesterday with gastroenteritis type picture. Nausea vomiting and watery diarrhea. Sick contacts with similar problems. Now presents with headache. She has just started to eat today. No prior history of headaches or migraines. Headache is starting to feel better now. No current nausea or vomiting. No weakness numbness paresthesias. No fevers or chills. Headache has been present for a few days and was gradual in onset Related Data Previous Rx's Medication Instructions Recorded ondansetron 4 mg disintegrating 4 mg PO Q8H PRN nausea and 10/07/20 tablet vomiting #20 tabs ondansetron 4 mg disintegrating 4 mg PO Q8H PRN nausea and 05/15/22 tablet vomiting #14 tabs Allergies Allergy/AdvReac Type Severity Reaction Status Date / Time dextran sulfate Allergy n/v Verified 05/15/22 12:55 tachycardia cough Review of Systems Constitutional: Comments: No fevers or chills Cardiovascular: Comments: No chest pain Respiratory: Comments: No cough or dyspnea Gastrointestinal: Comments: Nausea vomiting and diarrhea over the last few days. Mostly resolved at present Integumentary/Breasts: Comments: No rash Neurologic: Comments: No weakness numbness or paresthesias PENDING SALE TO [facility] Past Medical History Medical History No known health problems Surgical History No history of previous surgery Social History Social History Household Members: Family Housing: Apartment Are you a primary director of healthcare systems to a significant other at home: No Do you presently have visiting nurse or other home services: No Alcohol intake: never Patient Tobacco Use Status: Never used Tobacco Smoked in Last 30 Days: No Use of substances other than those prescribed or required for medical reasons: Yes Substance Use Type: Marijuana Advance Directives: No Advance Directives Information Provided: No Patient : No service: No Current occupational status: unemployed Physical Exam Vital Signs: Vital Signs: Last Vital Signs Temp 98.6 F 05/15/22 15:16 Pulse 73 05/15/22 15:16 Resp 14 05/15/22 15:16 BP 112/77 05/15/22 15:16 Pulse Ox 98 05/15/22 15:16 O2 Del Method Room Air 05/15/22 15:16 BMI result Body Mass Index 24.3 Const: Other: Awake alert. No acute distress. Eyes: Other: Pupils equal round reactive to light. Extraocular muscles intact. Funduscopic exam is normal. Resp: Other: Clear and equal bilaterally without wheezes rales or rhonchi Cardio: Other: Regular rate and rhythm without murmurs rubs or gallops GI: Other: Soft nontender nondistended. Normoactive bowel sounds. Skin: Other: Warm pink and dry without rash Neuro: Other: Nonfocal neuro exam. Ambulates without difficulty. Medications Administered Discontinued Medications Generic Name Dose Route Start Last Admin Trade Name Freq PRN Reason Stop Dose Admin Ketorolac Tromethamine 30 mg 05/15/22 13:04 05/15/22 13:52 Ketorolac Tromethamine 15 Mg/Ml Vial IM 05/15/22 13:05 30 mg ONCE ONE Administration Medical Decision Making Medical Decision Making MDM Narrative: Headache after gastroenteritis picture. Patient is feeling better. I do not think imaging is in is point. She has adequately hydrating and does not require IV fluids. I will, however, prescribe Zofran for continued nausea which may also help with the headache. Precautions to return if worse. Lab Data 05/15/22 13:15 05/15/22 13:15 Labs: Lab Results 05/15/22 05/15/22 05/15/22 Range/Units 13:15 13:15 13:15 WBC 8.3 (4.8-10.8) X10*3/uL RBC 4.78 (4.20-5.50) X10*6/uL Hgb 13.4 (12.0-16.0) g/dl Hct 40.7 (37.0-47.0) % MCV 85.1 (80.0-98.0) fL MCH 28.0 (27.0-33.0) pg MCHC 32.9 (31.0-35.0) g/dl RDW 13.5 (11.0-16.0) % Plt Count 332 (160-400) X10*3/uL MPV 9.3 L (9.4-12.3) fL Immature Gran % (Auto) 0.1 (0.0-0.4) % Neut % (Auto) 66.5 (45-73) % Lymph % (Auto) 26.3 (20-40) % [place] % (Auto) 6.5 (2-11) % Eos % (Auto) 0.2 (0-4) % Baso % (Auto) 0.4 (0-2) % Lymph # (Auto) 2.2 (1.2-4.9) X10*3/uL [place] # (Auto) 0.5 (0.1-1.2) X10*3/uL Eos # (Auto) 0.0 (0.0-0.4) X10*3/uL Baso # (Auto) 0.0 (0.0-0.2) X10*3/uL Abs Immat Gran (auto) 0.01 (0.00-0.03) X10*3/uL Absolute Neuts (auto) 5.5 (2.0-8.3) x10*3/uL Absolute Nucleated RBC 0.000 (0.0-0.012) X10*3/uL Nucleated RBC % (auto) 0.0 (0.0-0.2) /100WBC Sodium 140 (135-145) mmol/L Potassium 3.8 (3.3-5.1) mmol/L Chloride 106 (96-108) mmol/L Carbon Dioxide 21 L (22-29) mmol/L Anion Gap 17 (12-20) BUN 7 L (9-16) mg/dL Creatinine 0.79 (0.5-1.4) mg/dL Estim Creat Clear Calc 96.3 Estimated GFR > 60 Random Glucose 96 (60-115) mg/dL Calcium 9.6 (8.4-10.2) mg/dL Magnesium 2.2 (1.6-2.6) mg/dL Total Bilirubin 0.6 (0.0-1.0) mg/dL AST 12 (5-31) U/L ALT 8 (0-31) U/L Alkaline Phosphatase 56 (39-117) U/L Total Protein 7.7 (6.5-8.0) g/dL Albumin 4.5 (3.5-5.0) g/dL Urine Color Urine Appearance Urine pH (5.0-9.0) Ur Specific [place] (1.005-1.025) Urine Protein (Neg-Trace) mg/dL Urine Glucose (UA) (Negative) mg/dL Urine Ketones (Negative) mg/dL Urine Blood (Negative) Urine Nitrite (Negative) Ur Leukocyte Esterase (Negative) Urine Test (NEGATIVE) COVID-19 (TUNDE) (Negative) COVID-19 Clin Com Influenza Type A (VINITA) Negative (Negative) Influenza Type B (VINITA) Negative (Negative) Influenza A & B Note See Note 05/15/22 05/15/22 05/15/22 Range/Units 13:15 13:49 13:49 WBC (4.8-10.8) X10*3/uL RBC (4.20-5.50) X10*6/uL Hgb (12.0-16.0) g/dl Hct (37.0-47.0) % MCV (80.0-98.0) fL MCH (27.0-33.0) pg MCHC (31.0-35.0) g/dl RDW (11.0-16.0) % Plt Count (160-400) X10*3/uL MPV (9.4-12.3) fL Immature Gran % (Auto) (0.0-0.4) % Neut % (Auto) (45-73) % Lymph % (Auto) (20-40) % [place] % (Auto) (2-11) % Eos % (Auto) (0-4) % Baso % (Auto) (0-2) % Lymph # (Auto) (1.2-4.9) X10*3/uL [place] # (Auto) (0.1-1.2) X10*3/uL Eos # (Auto) (0.0-0.4) X10*3/uL Baso # (Auto) (0.0-0.2) X10*3/uL Abs Immat Gran (auto) (0.00-0.03) X10*3/uL Absolute Neuts (auto) (2.0-8.3) x10*3/uL Absolute Nucleated RBC (0.0-0.012) X10*3/uL Nucleated RBC % (auto) (0.0-0.2) /100WBC Sodium (135-145) mmol/L Potassium (3.3-5.1) mmol/L Chloride (96-108) mmol/L Carbon Dioxide (22-29) mmol/L Anion Gap (12-20) BUN (9-16) mg/dL Creatinine (0.5-1.4) mg/dL Estim Creat Clear Calc Estimated GFR Random Glucose (60-115) mg/dL Calcium (8.4-10.2) mg/dL Magnesium (1.6-2.6) mg/dL Total Bilirubin (0.0-1.0) mg/dL AST (5-31) U/L ALT (0-31) U/L Alkaline Phosphatase (39-117) U/L Total Protein (6.5-8.0) g/dL Albumin (3.5-5.0) g/dL Urine Color Yellow Urine Appearance Clear Urine pH 6.0 (5.0-9.0) Ur Specific [place] 1.025 (1.005-1.025) Urine Protein Negative (Neg-Trace) mg/dL Urine Glucose (UA) Negative (Negative) mg/dL Urine Ketones Trace (Negative) mg/dL Urine Blood Negative (Negative) Urine Nitrite Negative (Negative) Ur Leukocyte Esterase Negative (Negative) Urine Test NEGATIVE (NEGATIVE) COVID-19 (TUNDE) Negative (Negative) COVID-19 Clin Com See Note Influenza Type A (VINITA) (Negative) Influenza Type B (VINITA) (Negative) Influenza A & B Note Discharge Plan Discharge Clinical Impression: Headache Patient Disposition: Home, Self-Care Instructions: Acute Headache (ED) Prescriptions: New ondansetron 4 mg tablet,disintegrating 4 mg PO Q8H PRN (Reason: nausea and vomiting) Qty: 14 0RF No Action ondansetron 4 mg tablet,disintegrating 4 mg PO Q8H PRN (Reason: nausea and vomiting) Qty: 20 0RF
--- NOTE | 2022-05-15 16:05 | PC.NURSE ---
patient a&ox3, pt states her headache has resolved, denies nausea at this time, vitals stable, pt to be discharged home.
[2022-05-15 16:45] VITALS: BP 116/72; PULSE 82; RESP 18; TEMP 36.7; O2SAT 99
== END 2022-05-15 16:46 | disposition home or self-care (01) ==
PROVIDERS: Physician Assistant; Emergency Provider Emergency Medicine
DX: R51.9 Headache, unspecified (principal); Z20.822 Contact with and (suspected) exposure to COVID-19
CPT/HCPCS: 80053; 81003; 81025; 83735; 85025; 87502; 87635; 96372; 99284; J1885

== ENCOUNTER 2022-05-16 04:54 | Emergency (ER) | payer OTHER, SELFPAY ==
[2022-05-16 05:02] VITALS: BP 140/91; PULSE 103; RESP 16; TEMP 36.8; O2SAT 96; BMI 24.1
[2022-05-16 05:43] VITALS: BP 121/80; PULSE 71; RESP 18; TEMP 37.1; O2SAT 99
--- NOTE | 2022-05-16 07:42 | ED_ITS ---
HPI - Abdominal Pain General Chief Complaint: Abdominal Pain Stated Complaint: stomach pain Time Seen by Provider: 05/16/22 07:26 Source: patient Mode of arrival: ambulatory Limitations: language barrier ([place] speaking only, program schedule clerk used) History of Present Illness HPI narrative: 21-year-old female who presents emergency department for evaluation of abdominal pain, chills, nausea and vomiting. This is the patient's 3rd visit in 3 days. She states that after yesterday's visit she was feeling significantly better. She went to the pharmacy to belt picker her Zofran prescription however they told he r they did not have the medication at that time that she should return the next day. Patient states that at 04:00 hours this morning she developed abdominal pain. She states she has a history of gastritis and it feels like her gastritis is flaring up. She points to her epigastric area. She states that the pain is a constant, burning sensation which is 8/10. The patient had associated nausea and vomited multiple times. She states she had shaking chills but denied fever. She denies any blood in the emesis. She did not have any diarrhea. Related Data Previous Rx's Medication Instructions Recorded ondansetron 4 mg disintegrating 4 mg PO Q8H PRN nausea and 10/07/20 tablet vomiting #20 tabs ondansetron 4 mg disintegrating 4 mg PO Q8H PRN nausea and 05/15/22 tablet vomiting #14 tabs omeprazole 20 mg capsule,delayed 20 mg PO DAILY 30 days #30 caps 05/16/22 release Allergies Allergy/AdvReac Type Severity Reaction Status Date / Time dextran sulfate Allergy n/v Verified 05/16/22 05:02 tachycardia cough Review of Systems Review of Systems Yes all other systems are reviewed and are negative [facility] Past Medical History [facility] Narrative: Past medical history: Anemia, gastritis. Social history: She denies tobacco and alcohol use. She states she does smoke marijuana daily. Medical History No known health problems Surgical History No history of previous surgery Social History Social History Household Members: Family Housing: Apartment Are you a primary day care home mother to a significant other at home: No Do you presently have visiting nurse or other home services: No Alcohol intake: never Patient Tobacco Use Status: Never used Tobacco Substance Use Type: Marijuana Advance Directives: No Advance Directives Information Provided: Yes service: No Current occupational status: unemployed Physical Exam ED Vital Signs: Vital Signs - 24 hr 05/16/22 05:02 05/16/22 05:43 Temperature 98.2 F 98.7 F Pulse Rate 103 H 71 Respiratory Rate 16 18 Blood Pressure 140/91 H 121/80 Pulse Oximetry 96 99 Oxygen Delivery Method Room Air Room Air BMI result Body Mass Index 24.1 Const General: cooperative and no acute distress Orientation/consciousness: oriented to person and oriented to place Limitations: no limitations HENMT Head: Yes normal to inspection, Yes normocephalic and Yes atraumatic Ears: external ears normal General nose exam: Normal external nose present Face and sinus: Yes normal facial exam Mouth: Normal oral and palatal mucosa present Throat: Yes posterior oropharynx normal Eyes General: appearance normal, both eyes and all related structures Pupils: Equal, round and reactive pupils present Neck Neck: Yes normal visual inspection, Yes no lymphadenopathy, Yes trachea midline and Yes supple Chest Chest palpation & inspection: normal inspection of the chest and normal pal pation of entire chest wall Resp Effort & Inspection: normal respiratory effort and able to speak in complete sentences Auscultation: clear to auscultation bilaterally Cardio Rate: regular rate Rhythm: regular rhythm Heart sounds: S1 normal heart sound present, S2 normal heart sound present and no murmurs GI Inspection: Yes normal to inspection Palpation (GI): Soft to palpation, Tenderness to palpation present (GI) in the epigastrum and no guarding Auscultation: normal bowel sounds General: Yes no CVA tenderness Back/Spine/Pelvis Back: no CVA tenderness Skin General skin exam: no rashes or lesions noted Neuro General: oriented to person and oriented to place Cranial nerves: Yes CN's II-XII intact bilaterally and Yes Equal, round and reactive pupils present Cognition (Neuro): normal cognition Motor exam (neuro): 5/5 motor strength present throughout Extrem General: Yes normal to inspection Psych Appearance: grossly normal Speech and movement: Normal speech and movement present Affect: normal affect Attitude: cooperative Thought process: Normal thought process present Thought content: Normal thought content present Medical Decision Making Medical Decision Making MDM Narrative: 21-year-old female who presents emergency department for evaluation of epigastric burning pain, nausea, vomiting with symptoms starting at 04:00 hours this morning. This is the patient's 3rd visit in 3 days. Her previous visits were for headache with nausea and vomiting. Vital signs did reveal an elevated blood pressure of 140/91 with an elevated pulse of 103. Examination revealed epigastric tenderness otherwise was unremarkable. Laboratory evaluation over the past 2 days was unremarkable, she has had negative urine test. I ordered a laboratory evaluation includes CBC, CMP, lipase. Patient's pain was treated with Toradol 15 mg IV, nausea treated with Zofran 4 mg IV and she was ordered to get normal saline x1 L. 0849: My interpretation of patient's lab data is as follows: CBC was normal. CMP was normal. Lipase was normal. Patient is feeling better after the above treatment. Patient's symptoms are consistent with gastritis.Patient will be prescribed omeprazole 20 mg once a day for 1 month and extra-strength Gaviscon 4 times a day as needed. She was advised to get the prescription for Zofran filled as well. She was given printed and verbal instructions does and discharged home. Differential Diagnosis Differential diagnosis includes was not limited to cyclic vomiting syndrome, cannabis hyperemesis syndrome, gastritis. Lab Data 05/16/22 08:01 05/16/22 08:01 Labs: Lab Results 05/16/22 05/16/22 Range/Units 08:01 08:01 WBC 9.6 (4.8-10.8) X10*3/uL RBC 4.96 (4.20-5.50) X10*6/uL Hgb 13.7 (12.0-16.0) g/dl Hct 42.2 (37.0-47.0) % MCV 85.1 (80.0-98.0) fL MCH 27.6 (27.0-33.0) pg MCHC 32.5 (31.0-35.0) g/dl RDW 13.3 (11.0-16.0) % Plt Count 334 (160-400) X10*3/uL MPV 9.7 (9.4-12.3) fL Immature Gran % (Auto) 0.4 (0.0-0.4) % Neut % (Auto) 71.7 (45-73) % Lymph % (Auto) 21.5 (20-40) % [place] % (Auto) 6.0 (2-11) % Eos % (Auto) 0.1 (0-4) % Baso % (Auto) 0.3 (0-2) % Lymph # (Auto) 2.1 (1.2-4.9) X10*3/uL [place] # (Auto) 0.6 (0.1-1.2) X10*3/uL Eos # (Auto) 0.0 (0.0-0.4) X10*3/uL Baso # (Auto) 0.0 (0.0-0.2) X10*3/uL Abs Immat Gran (auto) 0.04 H (0.00-0.03) X10*3/uL Absolute Neuts (auto) 6.9 (2.0-8.3) x10*3/uL Absolute Nucleated RBC 0.000 (0.0-0.012) X10*3/uL Nucleated RBC % (auto) 0.0 (0.0-0.2) /100WBC Sodium 140 (135-145) mmol/L Potassium 3.8 (3.3-5.1) mmol/L Chloride 107 (96-108) mmol/L Carbon Dioxide 23 (22-29) mmol/L Anion Gap 14 (12-20) BUN 8 L (9-16) mg/dL Creatinine 0.78 (0.5-1.4) mg/dL Estim Creat Clear Calc 90.2 Estimated GFR > 60 Random Glucose 91 (60-115) mg/dL Calcium 9.5 (8.4-10.2) mg/dL Total Bilirubin 0.6 (0.0-1.0) mg/dL AST 12 (5-31) U/L ALT 7 (0-31) U/L Alkaline Phosphatase 55 (39-117) U/L Total Protein 7.5 (6.5-8.0) g/dL Albumin 4.5 (3.5-5.0) g/dL Lipase 12 (8-78) U/L Medications Administered Discontinued Medications Generic Name Dose Route Start Last Admin Trade Name Freq PRN Reason Stop Dose Admin Sodium Chloride 1,000 mls @ 999 mls/hr 05/16/22 07:41 05/16/22 08:05 Ns IV 05/16/22 08:41 999 mls/hr .Q1H1M STA Administration Ketorolac Tromethamine 15 mg 05/16/22 07:41 05/16/22 08:05 Ketorolac Tromethamine 15 Mg/Ml Vial IVPUSH 05/16/22 07:42 15 mg ONCE STA Administration Ondansetron HCl 4 mg 05/16/22 07:41 05/16/22 08:05 Ondansetron Hcl 4 Mg/2 Ml Vial IVPUSH 05/16/22 07:42 4 mg ONCE ONE Administration Discharge Plan Discharge Clinical Impression: Acute dehydration Gastritis Qualifiers: Chronicity: acute Gastritis bleeding: without bleeding Vomiting Qualifiers: Vomiting type: unspecified Nausea presence: with nausea Qualified Code(s): R11.2 - Nausea with vomiting, unspecified Patient Disposition: Home, Self-Care Instructions: Gastritis (ED) Additional Instructions: Your stomach pain is consistent with inflammation of the stomach (gastritis) Take Prilosec (omeprazole) 20 mg pills, 1 pill once a day for 1 month. This med ication shuts off your acid production and lets the inflammation in your stomach and esophagus heal. Get the prescription for Zofran filled. Take Zofran ODT 4 mg pills, 1 pill dissolved in your mouth every 8 hours as needed for nausea and vomiting. Follow-up with your doctor in 2 days. Please return to the emergency department if your symptoms get worse or if you develop any symptoms that are concerning to you. Prescriptions: New omeprazole 20 mg capsule,delayed release(DR/EC) 20 mg PO DAILY 30 Days Qty: 30 0RF No Action ondansetron 4 mg tablet,disintegrating 4 mg PO Q8H PRN (Reason: nausea and vomiting) Qty: 20 0RF ondansetron 4 mg tablet,disintegrating 4 mg PO Q8H PRN (Reason: nausea and vomiting) Qty: 14 0RF
[2022-05-16 08:04] LABS: MANUAL DIFF FLAG NO
[2022-05-16] MEDS: ondansetron HCL 4 MG/2 ML VIAL IVPUSH (08:05)
[2022-05-16] MEDS: Ketorolac Tromethamine 15 MG/ML VIAL IVPUSH (08:05)
[2022-05-16] MEDS: 0.9 % Sodium Chloride 1,000 ML 999 ML IV (08:05)
[2022-05-16 08:15] LABS: Basophils Percent Auto 0.3 % (0-2); Eosinophils Percent Auto 0.1 % (0-4); Hematocrit 42.2 % (37.0-47.0); Hemoglobin 13.7 g/dl (12.0-16.0); Imm Gran Abs Auto 0.04 X10*3/uL (0.00-0.03); Imm Gran Pct Auto 0.4 % (0.0-0.4); Lymphocytes Absolute Auto 2.1 X10*3/uL (1.2-4.9); Lymphocytes Percent Auto 21.5 % (20-40); Mean Corpuscular HGB Conc 32.5 g/dl (31.0-35.0); Mean Corpuscular Hemoglobin 27.6 pg (27.0-33.0); Mean Corpuscular Volume 85.1 fL (80.0-98.0); Mean Platelet Volume 9.7 fL (9.4-12.3); Monocytes Absolute Auto 0.6 X10*3/uL (0.1-1.2); Neutrophils Absolute Auto 6.9 x10*3/uL (2.0-8.3); Neutrophils Percent Auto 71.7 % (45-73); Platelet Count 334 X10*3/uL (160-400); Red Blood Count 4.96 X10*6/uL (4.20-5.50); Red Cell Distribution Width 13.3 % (11.0-16.0); White Blood Count 9.6 X10*3/uL (4.8-10.8)
[2022-05-16 08:31] LABS: Alanine Aminotransferase 7 U/L (0-31); Albumin Level 4.5 g/dL (3.5-5.0); Alkaline Phosphatase 55 U/L (39-117); Anion Gap 14 (12-20); Aspartate Amino Transferase 12 U/L (5-31); Bilirubin Total 0.6 mg/dL (0.0-1.0); Blood Urea Nitrogen 8 mg/dL (9-16); Calcium 9.5 mg/dL (8.4-10.2); Carbon Dioxide 23 mmol/L (22-29); Chloride 107 mmol/L (96-108); Creatinine Clr Calc Pharmacy 90.2; Estimated Glomerular Filt Rate > 60; Glucose Random 91 mg/dL (60-115); Lipase 12 U/L (8-78); Potassium 3.8 mmol/L (3.3-5.1); Sodium 140 mmol/L (135-145); Total Protein 7.5 g/dL (6.5-8.0)
[2022-05-16 09:02] VITALS: BP 133/76; PULSE 77; RESP 17; O2SAT 98
== END 2022-05-16 09:04 | disposition home or self-care (01) ==
PROVIDERS: Emergency Provider Emergency Medicine Emergency Medical Services
DX: E86.0 Dehydration (principal); K29.00 Acute gastritis without bleeding; R11.2 Nausea with vomiting, unspecified; R10.13 Epigastric pain; F12.90 Cannabis use, unspecified, uncomplicated
CPT/HCPCS: 36415; 80053; 83690; 85025; 96374; 96375; 99284; J1885; J2405

== ENCOUNTER 2023-01-30 10:47 | Emergency (ER) | payer OTHER, SELFPAY ==
--- NOTE | ~2023-01-30 | CT_ITS ---
EXAMINATION: CT ABDOMEN AND PELVIS WITH CONTRAST CLINICAL INFORMATION: Abdominal pain. Elevated white blood cell count. COMPARISON: None available. TECHNIQUE: Multidetector volumetric images were obtained from the superior aspect of the liver through the pubic symphysis following administration 85 mL of Omnipaque 350 intravenous contrast. Sagittal and coronal reformatted images were obtained on the technologist's workstation. Oral contrast: Yes This CT examination was performed using dose optimization techniques as appropriate, variously including the following: *Automated exposure control *Adjustment of mA and/or kV according to patient size (this includes techniques or standardized protocols for targeted exams where dose is matched to indication/reason for exam; i.e. extremities or head) *Use of iterative reconstruction technique DLP: 415 mGy-cm FINDINGS: LUNG BASES: The visualized lung bases are unremarkable. LIVER, GALLBLADDER, AND BILIARY TREE: The liver is normal in size, shape, and attenuation. No focal hepatic lesion or biliary ductal dilatation is present. The gallbladder is unremarkable with no evidence of radiopaque gallstones, gallbladder wall thickening, or obvious pericholecystic inflammatory changes. PANCREAS: Unremarkable. SPLEEN: Unremarkable. ADRENAL GLANDS: Unremarkable. KIDNEYS AND URETERS: The kidneys are normal in size, shape, and attenuation. No hydronephrosis, hydroureter, or calculi seen. No perinephric stranding. BLADDER: Unremarkable. GASTROINTESTINAL TRACT: The appendix is not seen. Fluid-filled slightly dilated loops of small bowel probably representing an ileus. Large bowel is unremarkable. Stomach is unremarkable. No ascites or free air. ABDOMINAL WALL: No significant hernia is appreciated. LYMPH NODES: Normal. VASCULAR: Unremarkable. PELVIC VISCERA: Unremarkable. OSSEOUS STRUCTURES: Unremarkable. CT/CT abdomen pelvis w IV con IMPRESSION: Fluid-filled slightly dilated loops of small bowel probably representing an ileus. Fleischner guidelines were followed.
[2023-01-30 11:38] VITALS: BP 141/94; PULSE 100; RESP 19; TEMP 36.6; O2SAT 100; BMI 26.1
--- NOTE | 2023-01-30 11:42 | ED_ITS ---
HPI - General Adult General Chief complaint: Abdominal Pain Stated complaint: Stomach Pain Diarrhea Etc Time Seen by Provider: 01/30/23 15:09 Source: patient Mode of arrival: ambulatory Limitations: no limitations History of Present Illness HPI narrative: 22-year-old female history of deficiency presents diarrhea which started around 07:00 have been progressively worsening. Denies sick contacts. Patient does smoke marijuana. Denies chest pain, shortness of breath, blood in stool or vomit, headache, vision changes, dizziness or weakness. Related Data Previous Rx's Medication Instructions Recorded ondansetron 4 mg disintegrating 4 mg PO Q8H PRN nausea and 10/07/20 tablet vomiting #20 tabs ondansetron 4 mg disintegrating 4 mg PO Q8H PRN nausea and 05/15/22 tablet vomiting #14 tabs omeprazole 20 mg capsule,delayed 20 mg PO DAILY 30 days #30 caps 05/16/22 release ondansetron 4 mg disintegrating 4 mg PO Q8H PRN nausea and 01/30/23 tablet vomiting #20 tabs Allergies Allergy/AdvReac Type Severity Reaction Status Date / Time dextran sulfate Allergy n/v Verified 01/30/23 11:38 tachycardia cough Review of Systems 2 Review of Systems: Constitutional : No Weight loss, No Fever, No Chills, No Fatigue, No Malaise ENT/Mouth : No sore throat, No Rhinorrhea Eyes: No Eye Pain, No Swelling, No Redness Cardiovascular : No Chest Pain, No SOB, No Dyspnea on Exertion, No Orthopnea, No Edema, No Palpitations Respiratory : No Cough, No Sputum, No Wheezing Gastrointestinal : + Nausea, + Vomiting, + Diarrhea, No Constipation, + abdominal Pain, No Hematochezia, No Melena Genitourinary : No Dysuria, No Urinary Frequency, No Hematuria, Musculoskeletal : No joint pain, No Myalgias, No Joint Swelling Skin : No Skin Lesions, No rash Neuro : No Weakness, No Numbness, No Dizziness, No Headache Psych : No Anxiety/Panic, No Depression All other systems reviewed and are negative Yes all other systems are reviewed and are negative [facility] Past Medical History Attestation statement: The following information was validated with the patient. Source: old records reviewed and nursing notes reviewed Medical History No known health problems Surgical History No history of previous surgery Social History Social History Household Members: Family Housing: Apartment Are you a primary primary health care nurse to a significant other at home: No Do you presently have visiting nurse or other home services: No Alcohol intake: never Patient Tobacco Use Status: Never used Tobacco Substance Use Type: Marijuana Advance Directives: No service: No Current occupational status: unemployed Physical Exam ED Vital Signs: Vital Signs - 24 hr 01/30/23 11:38 01/30/23 14:32 01/30/23 17:00 Temperature 98 F 97.9 F Pulse Rate 100 73 83 Respiratory Rate 19 18 Blood Pressure 141/94 H 104/66 97/43 L Pulse Oximetry 100 98 99 Oxygen Delivery Method Room Air Room Air Room Air 01/30/23 19:21 Temperature Pulse Rate 79 Respiratory Rate 17 Blood Pressure 109/64 Pulse Oximetry 98 Oxygen Delivery Method Room Air BMI result Body Mass Index 26.1 vss Appearance: Alert.? Oriented X3.? No acute distress.? Head: Normocephalic, atraumatic, no step-offs or deformities Eyes: Pupils equal, round and reactive to light.? CVS: Normal heart rate and rhythm.? Pulses normal.? Respiratory: No respiratory distress.? Breath sounds normal.? Abdomen: Soft and diffuse tenderness worse in epigastric region.? Skin: Skin warm and dry.? Normal skin color.? Normal skin turgor.? Extremities: No lower extremity edema.? No calf ttp. 5/5 strength to bilateral upper and lower extremities Back: No midline tenderness, no C-spine tenderness, full range of motion, no CVA tenderness bilaterally Neuro: Oriented X 3.? No motor deficit.? No sensory deficit. CN 2-12 intact Course Course Course Narrative: RmE: 22 yold female presents to the ED for abdominal pain, nausea, vomitting, and epigastric area since this AM. labs and SARS ordered. 12:54am: patient WBC 22, 000. Nurse Judy informed and patient will get a bed int he ED Reevaluation(s) Reevaluation #1: CBC with leukocytosis and left shift ? reactive from nausea/vomiting vs infection. Chemistry unremarkable. Lipase wnl. BHCG negative. UA w/o infection although 1+ bacteria likely contaminated. Flu/COVID/RSV negative. CT scan pending. There is some concern for infection therefore will prophylactically treat with antibiotics and a 30 cc/kilos bolus Time: 15:45 Reevaluation #2: Sign out to Ramos GONZALEZ pending imaging, reevaluation and dispo Reevaluation #3: Patient received in sign-out at change of shift pending CT scan and disposition. I re-evaluated the patient, she reports feeling much better, is not having any pain or vomiting. I did review our workup, I noted her significantly elevated leukocytosis as well as a lactate of 2.8. This could be related to viral etiology and vomiting as well as possible cyclic vomiting. The patient's CT scan did not show any significant pathology. There is some fluid-filled distention. This is possibly related to an ileus. Repeat lactate is pending the patient received significant amount of fluids. Her urine appears contaminated without sign of obvious infection Time: 18:45 Additional Reevaluation(s): Patient's lactate has improved, she is tolerating p.o., she does not require admission for her ileus. Medications Administered Discontinued Medications Generic Name Dose Route Start Last Admin Trade Name Freq PRN Reason Stop Dose Admin Diphenhydramine HCl 25 mg 01/30/23 15:10 01/30/23 15:31 Diphenhydramine Hcl 50 Mg/Ml Vial IVPUSH 01/30/23 15:11 25 mg ONCE ONE Administration Sodium Chloride 1,877.88 mls @ 1,877.88 mls/hr 01/30/23 15:43 01/30/23 17:40 Ns 30 ml/kg infuse over 1 hr (1877.88 ml) 01/30/23 16:42 Infused IV Infusion .Q1H STA Piperacillin Sod/Tazobactam 50 mls @ 100 mls/hr 01/30/23 15:43 01/30/23 16:38 Sod 3.375 gm/ Sodium Chloride IV 01/30/23 16:12 Infused ONCE ONE Infusion Iohexol 85 ml 01/30/23 15:22 01/30/23 15:23 Iohexol 350 Mg/Ml 100 Ml Infus..Btl IV 01/30/23 15:23 85 ml ONCE ONE Administration Metoclopramide HCl 10 mg 01/30/23 15:10 01/30/23 15:31 Metoclopramide Hcl 10 Mg/2 Ml Vial IVPUSH 01/30/23 15:11 10 mg ONCE ONE Administration Morphine Sulfate 4 mg 01/30/23 15:14 01/30/23 15:31 Morphine Sulfate 4 Mg/Ml Cartridge IVPUSH 01/30/23 15:15 4 mg ONCE ONE Administration Protocol Ondansetron HCl 4 mg 01/30/23 12:52 01/30/23 12:55 Ondansetron Odt 4 Mg Tab.Rapdis TRANSLINGU 01/30/23 12:53 4 mg ONCE ONE Administration Medical Decision Making Medical Decision Making [facility] Narrative: 1527 22 year old female presents w/ sudden onset n,v,d and epigastric pain at 0700 today PE w/ diffuse tenderness throughout and worse in the epigastric region. Concerns for viral illness vs appendicitis vs gasterenterits. Unlikely acute abdomen, obstruction, pancreatitis, cholecystitis, choleangitis. Unlikely ectopic, torsion. Will rule out electrolyte abnormalities, dehydration. Also ? cyclic vomiting. Plan- labs, imagingm urine, tox, hcg Differential Diagnosis Differential Diagnoses: The differential diagnosis associated with the presentation includes Concerns for viral illness vs appendicitis vs gasterenterits. Unlikely acute abdomen, obstruction, pancreatitis, cholecystitis, choleangitis. Unlikely ectopic, torsion. Will rule out electrolyte abnormalities, dehydration. Also ? cyclic vomiting. Admission/Observation Consideration of admission/observation: Escalation of care including admission/observation considered Lab Data [facility] Lab Attestation statement: I reviewed the patient's lab results. 01/30/23 12:31 01/30/23 12:31 Labs: Lab Results 01/30/23 01/30/23 01/30/23 Range/Units 12:31 16:00 18:31 WBC 24.0 H (4.8-10.8) X10*3/uL RBC 5.19 (4.20-5.50) X10*6/uL Hgb 14.6 (12.0-16.0) g/dl Hct 44.7 (37.0-47.0) % MCV 86.1 (80.0-98.0) fL MCH 28.1 (27.0-33.0) pg MCHC 32.7 (31.0-35.0) g/dl RDW 14.7 (11.0-16.0) % Plt Count 380 (160-400) X10*3/uL MPV 10.0 (9.4-12.3) fL Immature Gran % (Auto) 0.4 (0.0-0.4) % Neut % (Auto) 90.8 H (45-73) % Lymph % (Auto) 4.6 L (20-40) % [place] % (Auto) 3.8 (2-11) % Eos % (Auto) 0.2 (0-4) % Baso % (Auto) 0.2 (0-2) % Lymph # (Auto) 1.1 L (1.2-4.9) X10*3/uL [place] # (Auto) 0.9 (0.1-1.2) X10*3/uL Eos # (Auto) 0.1 (0.0-0.4) X10*3/uL Baso # (Auto) 0.1 (0.0-0.2) X10*3/uL Abs Immat Gran (auto) 0.10 H (0.00-0.03) X10*3/uL Absolute Neuts (auto) 21.7 H (2.0-8.3) x10*3/uL Absolute Nucleated RBC 0.000 (0.0-0.012) X10*3/uL Nucleated RBC % (auto) 0.0 (0.0-0.2) /100WBC Smear Tech's Comments VERIFIED Sodium 139 (135-145) mmol/L Potassium 3.8 (3.3-5.1) mmol/L Chloride 106 (96-108) mmol/L Carbon Dioxide 23 (22-29) mmol/L Anion Gap 14 (12-20) BUN 13 (9-16) mg/dL Creatinine 0.73 (0.5-1.4) mg/dL Estim Creat Clear Calc 102.5 Estimated GFR > 60 Random Glucose 150 H (60-115) mg/dL Lactic Acid 2.8 H* (0.5-2.0) mmol/L Lactic Acid F/U @ 2Hr 1.7 (0.5-2.0) mmol/L Calcium 9.9 (8.4-10.2) mg/dL Total Bilirubin 0.3 (0.0-1.0) mg/dL AST 17 (5-31) U/L ALT 15 (0-31) U/L Alkaline Phosphatase 63 (39-117) U/L Total Protein 8.8 H (6.5-8.0) g/dL Albumin 4.8 (3.5-5.0) g/dL Lipase 11 (8-78) U/L Beta HCG, Quant < 2 mIU/mL Urine Color Yellow Urine Appearance Turbid Urine pH 5.0 (5.0-9.0) Ur Specific [place] 1.025 (1.005-1.025) Urine Protein 30 (1+) H (Neg-Trace) mg/dL Urine Glucose (UA) Negative (Negative) mg/dL Urine Ketones Trace (Negative) mg/dL Urine Blood Trace H (Negative) Urine Nitrite Negative (Negative) Ur Leukocyte Esterase Negative (Negative) Urine RBC 3-5 H (0-2) /HPF Urine WBC 0-5 (0-5) /HPF Ur Squamous Epith Cells 6-10 (0-2) /HPF Urine Bacteria 1+ (None Seen) Hyaline Casts 3-5 (0-2) /LPF Urine Test NEGATIVE (NEGATIVE) Urine Opiates Screen POSITIVE H (Not Detect) Urine Fentanyl Screen Not Detected (Not Detect) Ur Barbiturates Screen Not Detected (Not Detect) Ur Phencyclidine Scrn Not Detected (Not Detect) Ur Amphetamines Screen Not Detected (Not Detect) U Benzodiazepines Scrn Not Detected (Not Detect) Urine Cocaine Screen Not Detected (Not Detect) U Marijuana (THC) Screen POSITIVE H (Not Detect) Influenza Type A (PCR) NEGATIVE (Negative) Influenza Type B (PCR) NEGATIVE (Negative) RSV RNA Qual (PCR) NEGATIVE (Negative) SARS-CoV-2 RNA (RT-PCR) NEGATIVE (Negative) Independent Interpretation I performed an independent interpretation of an: CT Scan Radiology Impression Discussion of test interpretation with radiology: I have reviewed the radiologist's reading. Critical Care Time Critical Care Time Critical Care Time: No Discharge Plan Discharge Clinical Impression: Abdominal pain, Nausea & vomiting, Diarrhea Patient Disposition: Home, Self-Care Instructions: Acute Nausea and Vomiting (ED) Additional Instructions: Your CT scan showed some inflammation of the small bowel. You may use Zofran at home as needed for any further nausea or vomiting Drink lots of fluids, small sips at a time Follow-up with your primary doctor for repeat lab work in the next 1-2 weeks Prescriptions: New ondansetron 4 mg tablet,disintegrating 4 mg PO Q8H PRN (Reason: nausea and vomiting) Qty: 20 0RF No Action ondansetron 4 mg tablet,disintegrating 4 mg PO Q8H PRN (Reason: nausea and vomiting) Qty: 20 0RF ondansetron 4 mg tablet,disintegrating 4 mg PO Q8H PRN (Reason: nausea and vomiting) Qty: 14 0RF omeprazole 20 mg capsule,delayed release(DR/EC) 20 mg PO DAILY 30 Days Qty: 30 0RF Interventions: ED Discharge Assessment Last Done: 01/30/23 19:25 Discharge Date/Time: 01/30/23 19:27
[2023-01-30 12:45] LABS: Basophils Absolute Auto 0.1 X10*3/uL (0.0-0.2); Basophils Percent Auto 0.2 % (0-2); Eosinophils Absolute Auto 0.1 X10*3/uL (0.0-0.4); Eosinophils Percent Auto 0.2 % (0-4); Hematocrit 44.7 % (37.0-47.0); Hemoglobin 14.6 g/dl (12.0-16.0); Imm Gran Pct Auto 0.4 % (0.0-0.4); Lymphocytes Absolute Auto 1.1 X10*3/uL (1.2-4.9); Lymphocytes Percent Auto 4.6 % (20-40); MANUAL DIFF FLAG SCAN; Mean Corpuscular HGB Conc 32.7 g/dl (31.0-35.0); Mean Corpuscular Hemoglobin 28.1 pg (27.0-33.0); Mean Corpuscular Volume 86.1 fL (80.0-98.0); Monocytes Absolute Auto 0.9 X10*3/uL (0.1-1.2); Monocytes Percent Auto 3.8 % (2-11); Neutrophils Absolute Auto 21.7 x10*3/uL (2.0-8.3); Neutrophils Percent Auto 90.8 % (45-73); Platelet Count 380 X10*3/uL (160-400); Red Blood Count 5.19 X10*6/uL (4.20-5.50); Red Cell Distribution Width 14.7 % (11.0-16.0); SCAN SMEAR FLAG 1
[2023-01-30 12:47] LABS: Appearance Urine Turbid; Color Urine Yellow; Glucose Urine UA Negative (Negative); Leukocyte Esterase Urine Negative (Negative); Nitrite Urine Negative (Negative); Specific Gravity - Urine 1.025 (1.005-1.025); UMIC TRIGGER UACC YES; Urine Blood Trace (Negative); Urine Ketones Trace mg/dL (Negative); Urine Protein 30 (1+) mg/dL (Neg-Trace)
[2023-01-30 12:48] LABS: UPreg QC Valid YES; Urine Pregnancy NEGATIVE (NEGATIVE)
[2023-01-30 12:51] LABS: Bacteria Urine 1+ (None Seen); WBC Urine 0-5 /HPF (0-5)
[2023-01-30] MEDS: Ondansetron ODT 4 MG TAB.RAPDIS TRANSLINGU (12:55)
[2023-01-30 13:04] LABS: Alanine Aminotransferase 15 U/L (0-31); Albumin Level 4.8 g/dL (3.5-5.0); Alkaline Phosphatase 63 U/L (39-117); Anion Gap 14 (12-20); Aspartate Amino Transferase 17 U/L (5-31); Bilirubin Total 0.3 mg/dL (0.0-1.0); Blood Urea Nitrogen 13 mg/dL (9-16); Calcium 9.9 mg/dL (8.4-10.2); Carbon Dioxide 23 mmol/L (22-29); Chloride 106 mmol/L (96-108); Creatinine Clr Calc Pharmacy 102.5; Estimated Glomerular Filt Rate > 60; Glucose Random 150 mg/dL (60-115); Lipase 11 U/L (8-78); Potassium 3.8 mmol/L (3.3-5.1); Sodium 139 mmol/L (135-145); Total Protein 8.8 g/dL (6.5-8.0)
[2023-01-30 13:05] LABS: SLIDE REVIEW VERIFIED
[2023-01-30 13:09] LABS: HCG Quantitative < 2 mIU/mL
[2023-01-30 13:23] LABS: Influenza A PCR NEGATIVE (Negative); Influenza B PCR NEGATIVE (Negative); Resp Syncy Virus RNA Qual PCR NEGATIVE (Negative); SARS COV2 PCR INHOUSE NEGATIVE (Negative)
[2023-01-30 14:32] VITALS: BP 104/66; PULSE 73; RESP 18; TEMP 36.6; O2SAT 98
[2023-01-30] MEDS: iohexoL 350 MG/ML 100 ML INFUS..BTL 85 ML IV (15:23)
[2023-01-30] MEDS: diphenhydrAMINE HCL 50 MG/ML VIAL 25 MG IVPUSH (15:31)
[2023-01-30] MEDS: Morphine Sulfate 4 MG/ML CARTRIDGE IVPUSH (15:31)
[2023-01-30] MEDS: Metoclopramide HCl 10 MG/2 ML VIAL IVPUSH (15:31)
[2023-01-30] MEDS: Piperacillin Sodium/Tazobactam 3.375 GM in 0.9 % Sodium Chloride 50 ML IV (15:57)
[2023-01-30] MEDS: 0.9 % Sodium Chloride 1,877.88 ML 1877.88 ML IV (15:58)
[2023-01-30 17:00] VITALS: BP 97/43; PULSE 83; O2SAT 99
[2023-01-30 17:07] LABS: Lactic Acid 2.8 mmol/L (0.5-2.0)
[2023-01-30 18:13] LABS: Reflex Lactate? Lactic Acid Added
[2023-01-30 18:46] LABS: Amphetamine Screen Urine Not Detected (Not Detect); Barbiturates, Urine Not Detected (Not Detect); Benzodiazepines Screen Urine Not Detected (Not Detect); Cannabinoid Screen Urine POSITIVE (Not Detect); Cocaine Screen Urine Not Detected (Not Detect); Fentanyl, urine Not Detected (Not Detect); Opiate Screen Urine POSITIVE (Not Detect); Phencyclidine Screen Urine Not Detected (Not Detect)
[2023-01-30 18:49] LABS: ~Lactic Acid-LAB USE ONLY 1.7 mmol/L (0.5-2.0)
[2023-01-30 19:21] VITALS: BP 109/64; PULSE 79; RESP 17; O2SAT 98
== END 2023-01-30 19:27 | disposition home or self-care (01) ==
PROVIDERS: Physician Assistant; Emergency Provider Emergency Medicine Emergency Medical Services
DX: R10.13 Epigastric pain (principal); R19.7 Diarrhea, unspecified; F12.90 Cannabis use, unspecified, uncomplicated; Z20.822 Contact with and (suspected) exposure to COVID-19; Z20.828 Contact with and (suspected) exposure to other viral communicable diseases; Z79.899 Other long term (current) drug therapy
CPT/HCPCS: 0241U; 36415; 74177; 80053; 80307; 81001; 81025; 83605; 83690; 84702; 85025; 87040; 96361; 96365; 96375; 99284; J1200; J2270; J2543; J2765; Q9967

== ENCOUNTER 2023-08-24 09:24 | Emergency (ER) | payer OTHER, SELFPAY ==
--- NOTE | ~2023-08-24 | CT_ITS ---
EXAMINATION: CT ABDOMEN AND PELVIS WITH CONTRAST CLINICAL INFORMATION: Epigastric pain, intractable nausea and vomiting COMPARISON: CT abdomen pelvis on 01/30/2023 TECHNIQUE: Multidetector volumetric images were obtained from the superior aspect of the liver through the pubic symphysis following administration 85 mL of Omnipaque 350 intravenous contrast. Sagittal and coronal reformatted images were obtained on the technologist's workstation. Oral contrast: No This CT examination was performed using dose optimization techniques as appropriate, variously including the following: *Automated exposure control *Adjustment of mA and/or kV according to patient size (this includes techniques or standardized protocols for targeted exams where dose is matched to indication/reason for exam; i.e. extremities or head) *Use of iterative reconstruction technique DLP: 420 mGy-cm FINDINGS: LUNG BASES: The visualized lung bases are unremarkable. LIVER, GALLBLADDER, AND BILIARY TREE: The liver is normal in size, shape, and attenuation. No focal hepatic lesion or biliary ductal dilatation is present. The gallbladder is unremarkable with no evidence of radiopaque gallstones, gallbladder wall thickening, or obvious pericholecystic inflammatory changes. PANCREAS: Unremarkable. SPLEEN: Unremarkable. ADRENAL GLANDS: Unremarkable. KIDNEYS AND URETERS: The kidneys are normal in size, shape, and attenuation. No hydronephrosis, hydroureter, or calculi seen. No perinephric stranding. BLADDER: Unremarkable. GASTROINTESTINAL TRACT: The small and large bowel are unremarkable. Mild wall thickening of the ascending colon with trace surrounding inflammatory changes. The appendix is not visualized, however no pericecal inflammatory changes are visualized. ABDOMINAL WALL: No significant hernia is appreciated. LYMPH NODES: Normal. VASCULAR: Unremarkable. PELVIC VISCERA: The uterus is unremarkable. There is a left adnexal cyst measuring 2.8 cm. OSSEOUS STRUCTURES: Unremarkable. CT/CT abdomen pelvis w IV con IMPRESSION: 1. Mild wall thickening of the ascending colon with trace surrounding inflammatory changes may be secondary to colitis. 2. Left adnexal cyst measuring 2.8 cm. Fleischner guidelines were followed.
[2023-08-24 09:30] VITALS: BP 114/88; PULSE 79; RESP 18; TEMP 37; O2SAT 100; BMI 27.0
[2023-08-24 09:50] LABS: MANUAL DIFF FLAG NO
[2023-08-24 09:57] LABS: Basophils Percent Auto 0.3 % (0-2); Eosinophils Percent Auto 0.2 % (0-4); Hematocrit 40.1 % (37.0-47.0); Hemoglobin 13.9 g/dl (12.0-16.0); Imm Gran Abs Auto 0.03 X10*3/uL (0.00-0.03); Imm Gran Pct Auto 0.3 % (0.0-0.4); Lymphocytes Absolute Auto 1.8 X10*3/uL (1.2-4.9); Lymphocytes Percent Auto 17.6 % (20-40); Mean Corpuscular HGB Conc 34.7 g/dl (31.0-35.0); Mean Corpuscular Hemoglobin 28.9 pg (27.0-33.0); Mean Corpuscular Volume 83.4 fL (80.0-98.0); Mean Platelet Volume 9.7 fL (9.4-12.3); Monocytes Absolute Auto 0.4 X10*3/uL (0.1-1.2); Monocytes Percent Auto 3.7 % (2-11); Neutrophils Absolute Auto 8.1 x10*3/uL (2.0-8.3); Neutrophils Percent Auto 77.9 % (45-73); Platelet Count 338 X10*3/uL (160-400); Red Blood Count 4.81 X10*6/uL (4.20-5.50); Red Cell Distribution Width 13.6 % (11.0-16.0); White Blood Count 10.4 X10*3/uL (4.8-10.8)
[2023-08-24 10:26] LABS: Alanine Aminotransferase 13 U/L (0-31); Albumin Level 4.7 g/dL (3.5-5.0); Alkaline Phosphatase 53 U/L (39-117); Anion Gap 15 (12-20); Aspartate Amino Transferase 17 U/L (5-31); Bilirubin Total 0.3 mg/dL (0.0-1.0); Blood Urea Nitrogen 12 mg/dL (9-16); Calcium 10.1 mg/dL (8.4-10.2); Carbon Dioxide 18 mmol/L (22-29); Chloride 109 mmol/L (96-108); Creatinine Clr Calc Pharmacy 100.6; Estimated Glomerular Filt Rate > 60; Glucose Random 129 mg/dL (60-115); Influenza A PCR NEGATIVE (Negative); Influenza B PCR NEGATIVE (Negative); Potassium 3.9 mmol/L (3.3-5.1); Resp Syncy Virus RNA Qual PCR NEGATIVE (Negative); SARS COV2 PCR INHOUSE NEGATIVE (Negative); Sodium 138 mmol/L (135-145)
[2023-08-24 11:20] LABS: Appearance Urine Turbid; Color Urine RED; Glucose Urine UA Negative (Negative); Leukocyte Esterase Urine Trace (Negative); Nitrite Urine Negative (Negative); PH 8.5 (5.0-9.0); UMIC TRIGGER UACC YES; Urine Blood Large (3+) (Negative); Urine Ketones 15 mg/dL (Negative); Urine Protein 30 (1+) mg/dL (Neg-Trace)
[2023-08-24 11:22] LABS: UPreg QC Valid YES; Urine Pregnancy NEGATIVE (NEGATIVE)
[2023-08-24 11:30] LABS: Bacteria Urine None Seen (None Seen); Hyaline Casts Urine 0-2 /LPF (0-2); RBC Urine >20 /HPF (0-2); WBC Urine 0-5 /HPF (0-5)
--- NOTE | 2023-08-24 11:32 | ED_ITS ---
HPI - General Adult General Chief complaint: Nausea/Vomiting/Diarrhea Stated complaint: Vomiting Time Seen by Provider: 08/24/23 11:17 Source: patient Mode of arrival: ambulatory Limitations: language barrier History of Present Illness HPI narrative: Patient is a 23-year-old female who presents emergency department 4 days of nausea vomiting epigastric pain, poor p.o. intake. Also admits to having intermittent dizziness and body aches over the past 2 weeks. She reports a history of similar symptoms in the past for her iron levels low. Denies possibility of reporting she is currently on her menstrual cycle. 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 Denies any known sick contacts. Related Data Previous Rx's ?Medication ?Instructions ?Recorded ondansetron 4 mg disintegrating 4 mg PO Q8H PRN nausea and 10/07/20 tablet vomiting #20 tabs ondansetron 4 mg disintegrating 4 mg PO Q8H PRN nausea and 05/15/22 tablet vomiting #14 tabs omeprazole 20 mg capsule,delayed 20 mg PO DAILY 30 days #30 caps 05/16/22 release ondansetron 4 mg disintegrating 4 mg PO Q8H PRN nausea and 01/30/23 tablet vomiting #20 tabs omeprazole 20 mg capsule,delayed 20 mg PO DAILY #30 caps 08/24/23 release ondansetron 4 mg disintegrating 4 mg PO Q8H PRN nausea and 08/24/23 tablet vomiting #14 tabs Allergies Allergy/AdvReac Type Severity Reaction Status Date / Time dextran sulfate Allergy n/v Verified 08/24/23 09:34 tachycardia cough Review of Systems 2 Review of Systems: Yes all other systems are reviewed and are negative PMFSH Past Medical History Attestation statement: The following information was validated with the patient. Source: old records reviewed Medical History No known health problems Surgical History No history of previous surgery Social History Social History Household Members: Family Housing: Apartment Are you a primary transitional care manager to a significant other at home: No Do you presently have visiting nurse or other home services: No Alcohol intake: never Patient Tobacco Use Status: Never used Tobacco Substance Use Type: Marijuana Advance Directives: No service: No Current occupational status: unemployed Physical Exam ED Vital Signs: Vital Signs - 24 hr 08/24/23 09:30 08/24/23 12:34 08/24/23 14:00 Temperature 98.6 F 98.0 F Pulse Rate 79 67 70 Respiratory Rate 18 16 15 Blood Pressure 114/88 117/75 114/75 Pulse Oximetry 100 100 98 Oxygen Delivery Method Room Air Room Air Room Air BMI result Body Mass Index 27.0 Appearance: Alert.?Oriented to person, place and time. No acute distress.?Normal affect. Eyes: Pupils equal, round and reactive to light.? ENT: Pharynx normal.?? Neck: Normal inspection.? Neck supple.?? CVS: Heart sounds normal. Normal heart rate and rhythm.? Pulses normal.?? Respiratory: No respiratory distress.? Lung sounds clear to auscultation bilaterally?? Abdomen: Soft with epigastric tenderness upon palpation, no rigidity or guarding, negative Funes sign.. Normoactive bowel sounds. Skin: Skin warm and dry.? Normal skin color.? Extremities: No lower extremity edema.? Neuro: Moves all extremities spontaneously. Sensation intact bilaterally. Ambulates with normal steady gait. Course Reevaluation(s) Reevaluation #1: Patient received Zofran Toradol and IV fluids without improvement in her symptoms. Continues to report severe epigastric pain nausea vomiting. Trialed IV Reglan, famotidine, and a GI cocktail without improvement. She was provided with crackers from nursing staff to trial, but states that she vomited after consuming. Trial additional management at this time with droperidol, CT of the abdomen and pelvis to rule out acute pathology. Will consider admission for intractable nausea and vomiting Time: 15:40 Reevaluation #2: CT of the abdomen and pelvis without evidence of obstruction, mild thickening of the ascending colon may be secondary to colitis. She has not experiencing any diarrhea. No tenderness upon palpation in this area. Reports symptoms are much improved after receiving droperidol, nausea has resolved, she has been tolerating oral fluids without vomiting. I offered her hospital admission if she felt as though she was unable to tolerate being discharged home with omeprazole and Zofran, shortness to trial further management at home in slow progression of bland diet. Discussed strict return precautions. All questions answered. Time: 17:37 Medications Administered Discontinued Medications Generic Name Dose Route Start Last Admin Trade Name Luiza PRN Reason Stop Dose Admin Al Hydroxide/Mg Hydroxide 30 ml 08/24/23 12:47 08/24/23 13:00 Magnesium Hydrox/Alum Hydrox 30 Ml Oral.Susp PO 08/24/23 12:48 30 ml ONCE ONE Administration Droperidol 0.625 mg 08/24/23 15:40 08/24/23 15:51 Droperidol 5 Mg/2 Ml Vial IVPUSH 08/24/23 15:41 0.625 mg ONCE ONE Administration Famotidine 20 mg 08/24/23 12:47 08/24/23 13:00 Famotidine/Pf 20 Mg/2 Ml Vial IVPUSH 08/24/23 12:48 20 mg ONCE ONE Administration Sodium Chloride 1,000 mls @ 999 mls/hr 08/24/23 11:45 08/24/23 12:50 Ns IV 08/24/23 12:45 Infused .Q1H1M CHANCE Infusion Sodium Chloride 1,000 mls @ 999 mls/hr 08/24/23 15:45 08/24/23 16:54 Ns IV 08/24/23 16:45 Infused .Q1H1M CHANCE Infusion Iohexol 85 ml 08/24/23 16:40 08/24/23 16:41 Iohexol 350 Mg/Ml 100 Ml Infus..Btl IV 08/24/23 16:41 85 ml ONCE ONE Administration Ketorolac Tromethamine 30 mg 08/24/23 11:31 08/24/23 11:46 Ketorolac Tromethamine 30 Mg/Ml Vial IVPUSH 08/24/23 11:32 30 mg ONCE ONE Administration Lidocaine HCl 15 ml 08/24/23 12:47 08/24/23 13:00 Lidocaine Hcl Viscous 2 % 15 Ml Solution MUCOUS MEM 08/24/23 12:48 15 ml ONCE ONE Administration Metoclopramide HCl 10 mg 08/24/23 12:47 08/24/23 13:00 Metoclopramide Hcl 10 Mg/2 Ml Vial IVPUSH 08/24/23 12:48 10 mg ONCE ONE Administration Ondansetron HCl 4 mg 08/24/23 11:31 08/24/23 11:47 Ondansetron Hcl 4 Mg/2 Ml Vial IVPUSH 08/24/23 11:32 4 mg ONCE ONE Administration Medical Decision Making Medical Decision Making [facility] Narrative: Patient is a 23-year-old female who presents emergency department for evaluation of nausea vomiting and epigastric pain as per HPI. She appears uncomfortable at the time my examination. Abdominal exam is notable for epigastric tenderness but is without rigidity or guarding. Vital signs are stable she is without tachycardia tachypnea hypoxia or fever. Will obtain CBC to evaluate for leukocytosis/ anemia, CMP and lipase to evaluate for abnormal electrolytes /abnormal renal function/ abnormal hepatic/biliary function, and Urinalysis. Differential Diagnosis Differential Diagnoses: The differential diagnosis associated with the presentation includes Concern for viral illness versus gastroenteritis versus gastritis, dehydration, electrolyte derangement, cyclical vomiting. Suspect less likely to be pancreatitis, cholecystitis, cholangitis, acute surgical abdomen. Currently menstruating, less likely topic , location less consistent with TOA/torsion. Admission/Observation Consideration of admission/observation: Escalation of care including admission/observation considered Lab Data [facility] Lab Attestation statement: I reviewed the patient's lab results. CBC is without leukocytosis anemia or thrombocytopenia. Electrolytes overall unremarkable, no SAM. LFTs and lipase within normal range. Urinalysis with microscopic hematuria however she is currently menstruating, not consistent with urinary tract infection. HCG negative. Viral panel negative. 08/24/23 09:46 08/24/23 09:46 Labs: Lab Results 08/24/23 08/24/23 Range/Units 09:46 11:11 WBC 10.4 (4.8-10.8) X10*3/uL RBC 4.81 (4.20-5.50) X10*6/uL Hgb 13.9 (12.0-16.0) g/dl Hct 40.1 (37.0-47.0) % MCV 83.4 (80.0-98.0) fL MCH 28.9 (27.0-33.0) pg MCHC 34.7 (31.0-35.0) g/dl RDW 13.6 (11.0-16.0) % Plt Count 338 (160-400) X10*3/uL MPV 9.7 (9.4-12.3) fL Immature Gran % (Auto) 0.3 (0.0-0.4) % Neut % (Auto) 77.9 H (45-73) % Lymph % (Auto) 17.6 L (20-40) % Kimball % (Auto) 3.7 (2-11) % Eos % (Auto) 0.2 (0-4) % Baso % (Auto) 0.3 (0-2) % Lymph # (Auto) 1.8 (1.2-4.9) X10*3/uL Kimball # (Auto) 0.4 (0.1-1.2) X10*3/uL Eos # (Auto) 0.0 (0.0-0.4) X10*3/uL Baso # (Auto) 0.0 (0.0-0.2) X10*3/uL Abs Immat Gran (auto) 0.03 (0.00-0.03) X10*3/uL Absolute Neuts (auto) 8.1 (2.0-8.3) x10*3/uL Absolute Nucleated RBC 0.000 (0.0-0.012) X10*3/uL Nucleated RBC % (auto) 0.0 (0.0-0.2) /100WBC Sodium 138 (135-145) mmol/L Potassium 3.9 (3.3-5.1) mmol/L Chloride 109 H (96-108) mmol/L Carbon Dioxide 18 L (22-29) mmol/L Anion Gap 15 (12-20) BUN 12 (9-16) mg/dL Creatinine 0.75 (0.5-1.4) mg/dL Estim Creat Clear Calc 100.6 Estimated GFR > 60 Random Glucose 129 H (60-115) mg/dL Calcium 10.1 (8.4-10.2) mg/dL Total Bilirubin 0.3 (0.0-1.0) mg/dL AST 17 (5-31) U/L ALT 13 (0-31) U/L Alkaline Phosphatase 53 (39-117) U/L Total Protein 8.0 (6.5-8.0) g/dL Albumin 4.7 (3.5-5.0) g/dL Lipase 12 (8-78) U/L Urine Color RED Urine Appearance Turbid Urine pH 8.5 (5.0-9.0) Ur Specific Sells 1.020 (1.005-1.025) Urine Protein 30 (1+) H (Neg-Trace) mg/dL Urine Glucose (UA) Negative (Negative) mg/dL Urine Ketones 15 (Negative) mg/dL Urine Blood Large (3+) H (Negative) Urine Nitrite Negative (Negative) Ur Leukocyte Esterase Trace H (Negative) Urine RBC >20 H (0-2) /HPF Urine WBC 0-5 (0-5) /HPF Ur Squamous Epith Cells 3-5 (0-2) /HPF Urine Bacteria None Seen (None Seen) Hyaline Casts 0-2 (0-2) /LPF Urine Test NEGATIVE (NEGATIVE) Influenza Type A (PCR) NEGATIVE (Negative) Influenza Type B (PCR) NEGATIVE (Negative) RSV RNA Qual (PCR) NEGATIVE (Negative) SARS-CoV-2 RNA (RT-PCR) NEGATIVE (Negative) Independent Interpretation I performed an independent interpretation of an: CT Scan (No obstruction, no diverticulitis) Radiology Impression Discussion of test interpretation with radiology: I have reviewed the radiologist's reading. Radiologist Impression: CT/CT abdomen pelvis w IV con IMPRESSION: 1. Mild wall thickening of the ascending colon with trace surrounding inflammatory changes may be secondary to colitis. 2. Left adnexal cyst measuring 2.8 cm. Independent Historian Clinical information obtained from an independent historian. History obtained from or confirmed by: Spouse External Record Review External record reviewed: Outpatient record Tests considered The following testing was considered but not selected: Considered ultrasound/CT abdomen and pelvis, see narrative above, imaging deferred Discharge Plan Discharge Clinical Impression: Gastritis Qualifiers: Chronicity: acute Patient Disposition: Home, Self-Care Instructions: Gastritis (ED) Additional Instructions: Introduce a bland diet including crackers, bananas, rice, soup, toast, and boiled vegetables. This may progress to plain baked or boiled chicken or turkey. Avoid dairy products or foods high in fat or grease. Take omeprazole 1st thing in the morning at least 30 minutes prior to having anything to eat or drink except provided. With Zofran as needed for nausea/vomiting. Return back to emergency department any new or worsening symptoms or concerns. Follow-up with your primary care provider next week Prescriptions: New omeprazole 20 mg capsule,delayed release(DR/EC) 20 mg PO DAILY Qty: 30 0RF ondansetron 4 mg tablet,disintegrating 4 mg PO Q8H PRN (Reason: nausea and vomiting) Qty: 14 0RF No Action ondansetron 4 mg tablet,disintegrating 4 mg PO Q8H PRN (Reason: nausea and vomiting) Qty: 20 0RF ondansetron 4 mg tablet,disintegrating 4 mg PO Q8H PRN (Reason: nausea and vomiting) Qty: 14 0RF ondansetron 4 mg tablet,disintegrating 4 mg PO Q8H PRN (Reason: nausea and vomiting) Qty: 20 0RF omeprazole 20 mg capsule,delayed release(DR/EC) 20 mg PO DAILY 30 Days Qty: 30 0RF Referrals: [facility] [Primary Care Provider] - Print Language: Samoan
[2023-08-24 11:46] LABS: Lipase 12 U/L (8-78)
[2023-08-24] MEDS: Ketorolac Tromethamine 30 MG/ML VIAL IVPUSH (11:46)
[2023-08-24] MEDS: 0.9 % Sodium Chloride 1,000 ML 999 ML IV ×2 (11:47→15:51)
[2023-08-24] MEDS: ondansetron HCL 4 MG/2 ML VIAL IVPUSH (11:47)
[2023-08-24 12:34] VITALS: BP 117/75; PULSE 67; RESP 16; O2SAT 100
[2023-08-24] MEDS: Lidocaine HCl Viscous 2 % 15 ML SOLUTION MUCOUS MEM (13:00)
[2023-08-24] MEDS: Metoclopramide HCl 10 MG/2 ML VIAL IVPUSH (13:00)
[2023-08-24] MEDS: Magnesium Hydrox/Alum Hydrox 30 ML ORAL.SUSP PO (13:00)
[2023-08-24] MEDS: Famotidine/PF 20 MG/2 ML VIAL IVPUSH (13:00)
[2023-08-24 14:00] VITALS: BP 114/75; PULSE 70; RESP 15; TEMP 36.7; O2SAT 98
[2023-08-24] MEDS: droPERidol 5 MG/2 ML VIAL 0.625 MG IVPUSH (15:51)
[2023-08-24] MEDS: iohexoL 350 MG/ML 100 ML INFUS..BTL 85 ML IV (16:41)
[2023-08-24 17:48] VITALS: BP 116/71; PULSE 81; RESP 16; TEMP 36.3; O2SAT 98
== END 2023-08-24 17:48 | disposition home or self-care (01) ==
PROVIDERS: Nurse Practitioner Family; Emergency Provider Emergency Medicine Emergency Medical Services
DX: K29.00 Acute gastritis without bleeding (principal); R10.13 Epigastric pain; R11.2 Nausea with vomiting, unspecified; Z03.818 Encounter for observation for suspected exposure to other biological agents ruled out
CPT/HCPCS: 0241U; 36415; 74177; 80053; 81001; 81025; 83690; 85025; 96361; 96374; 96375; 99284; J1790; J1885; J2405; J2765; Q9967

== ENCOUNTER 2023-08-25 11:03 | Emergency (ER) | payer OTHER, SELFPAY ==
[2023-08-25 11:12] VITALS: BP 148/70; PULSE 71; RESP 20; TEMP 36.9; O2SAT 100; BMI 25.6
--- NOTE | 2023-08-25 11:19 | ED.GENADULT ---
HPI - General Adult General Chief complaint: Nausea/Vomiting/Diarrhea Stated complaint: Vomiting Time Seen by Provider: 08/25/23 11:24 Source: patient, RN notes reviewed and old records reviewed Mode of arrival: ambulatory Limitations: no limitations History of Present Illness ED Provider: NAHUM DONOVAN PA-C HPI narrative: 23 year old female with no significant pmhx presents to the ED today for nausea, vomiting, and epigastric abdominal pain x5 days. Abdominal pain is localized to the epigastric region and does not radiate. Last episode of vomiting this morning. Endorses associated poor PO intake. Admits hot showers initially improved symptoms however this does no longer work. Patient denies marijuana use however odor of marijuana noted to clothes. Denies etoh consumption. She is currently on her menstrual period. Denies concern for STIs. Denies fever, chills, diarrhea, constipation, flank pain, hematuria, dysuria, vaginal discharge. Patient was evaluated in our ED yesterday for same. Labs/ UA unremarkable. CT abdomen showed mild colitis. Patient's symptoms improved after receiving droperidol and she was discharged home with omeprazole and Zofran. States she has been taking these medications at home as prescribed with continued symptoms, prompting her to come back to the ED. Related Data Previous Rx's ?Medication ?Instructions ?Recorded ondansetron 4 mg disintegrating 4 mg PO Q8H PRN nausea and 10/07/20 tablet vomiting #20 tabs ondansetron 4 mg disintegrating 4 mg PO Q8H PRN nausea and 05/15/22 tablet vomiting #14 tabs omeprazole 20 mg capsule,delayed 20 mg PO DAILY 30 days #30 caps 05/16/22 release ondansetron 4 mg disintegrating 4 mg PO Q8H PRN nausea and 01/30/23 tablet vomiting #20 tabs omeprazole 20 mg capsule,delayed 20 mg PO DAILY #30 caps 08/24/23 release ondansetron 4 mg disintegrating 4 mg PO Q8H PRN nausea and 08/24/23 tablet vomiting #14 tabs Allergies Allergy/AdvReac Type Severity Reaction Status Date / Time dextran sulfate Allergy n/v Verified 08/25/23 11:14 tachycardia cough Review of Systems Review of Systems: Constitutional: No fever, chills, fatigue, night sweats, weight changes ENT/Mouth: No ear pain, hearing loss, nasal congestion, sinus pain, rhinorrhea, sore throat Eyes: No eye pain, swelling, redness, vision changes, discharge Cardio: No chest pain, palpitations, HORTA, orthopnea, peripheral edema Pulm: No SOB, cough, sputum, wheezing, dyspnea, hemoptysis GI: No hematemesis, diarrhea, constipation, hematochezia, melena, +nausea, +vomiting, +abdominal pain : No irregular bleeding, dysuria, frequency, urgency, hesitancy, hematuria, flank pain, urinary flow changes, urinary incontinence or retention MSK: No back pain, neck pain, joint pain, myalgias Skin: No lesions, rashes Neuro: No weakness, numbness, paresthesias, LOC, dizziness, headache Psych: No anxiety/panic, depression, SI/HI, AH/VH All other systems reviewed and are negative. [facility] Past Medical History Attestation statement: The following information was validated with the patient. Source: old records reviewed and nursing notes reviewed Medical History No known health problems Surgical History No history of previous surgery Social History Social History Household Members: Family Housing: Apartment Are you a primary day care home mother to a significant other at home: No Do you presently have visiting nurse or other home services: No Alcohol intake: never Patient Tobacco Use Status: Never used Tobacco Smoked in Last 30 Days: No Use of substances other than those prescribed or required for medical reasons: Yes Substance Use Type: Marijuana Substance Use Frequency: Occasionally Last Used Substance: Days (ago) Any prior treatment program specific to substance use: No Advance Directives: No Advance Directives Information Provided: No Patient : No service: No Current occupational status: unemployed Physical Exam ED Vital Signs: Vital Signs - 24 hr 08/25/23 11:12 08/25/23 11:33 08/25/23 11:47 Temperature 98.4 F 98.5 F 99 F Pulse Rate 71 67 71 Respiratory Rate 20 17 14 Blood Pressure 148/70 H 122/71 132/82 Pulse Oximetry 100 100 100 Oxygen Delivery Method Room Air Room Air Room Air 08/25/23 14:02 Temperature 98.3 F Pulse Rate 62 Respiratory Rate 14 Blood Pressure 116/72 Pulse Oximetry 100 Oxygen Delivery Method Room Air BMI result Body Mass Index 25.6 Patient hypertensive, vitals otherwise WNL Const Other: Lying comfortably on the exam bed General: cooperative, healthy appearing, comfortable and no acute distress Orientation/consciousness: patient oriented x3 Limitations: no limitations HENMT Head: Yes normal to inspection, Yes No palpable skull fracture present, Yes normocephalic and Yes atraumatic Eyes General: appearance normal, both eyes and all related structures Pupils: Equal, round and reactive pupils present Neck Neck: Yes normal visual inspection, Yes full ROM and Yes no lymphadenopathy Resp Effort & Inspection: normal respiratory effort and able to speak in complete sentences Auscultation: clear to auscultation bilaterally Cardio Rate: regular rate Rhythm: regular rhythm GI Other: Abdomen is soft, nondistended, nontender to palpation, no rebound tenderness or guarding. Normoactive bowel sounds x4. Negative Rovsing sign, negative McBurney point tenderness. Negative Funes's sign. General: Yes no CVA tenderness Back/Spine/Pelvis Back: no CVA tenderness Skin General skin exam: no rashes or lesions noted Neuro General: patient oriented x3 Cranial nerves: Yes Equal, round and reactive pupils present Extrem General: Yes normal to inspection Course Course Course Narrative: RME: done by CHERELLE Cotto. 23 yold female presents to the ED for vomitting since yesterday, and epigastric pain. Patient was seen here yesterday. no abdominal tenderness on palpation. Labs ordered Reevaluation(s) Reevaluation #1: 1301-- CBC without leukocytosis. No anemia. H&H stable. Chemistry without acute electrolyte abnormality requiring intervention. Normal renal and liver function. Lipase WNL > pancreatitis unlikely. Beta HCG undetectable. UA without infection or blood. Urine negative. Urine toxicology positive for marijuana, otherwise negative. Ethanol undetectable. > on review of yesterday's workup, patient tested negative for COVID, flu, RSV. CT abdomen/pelvis showing mild wall thickening of the ascending colon with trace surrounding inflammatory changes likely secondary to colitis along with left adnexal cyst measuring 2.8 cm. 1351-- on re-evaluation, patient reports significant improvement in pain/nausea after receiving Toradol, droperidol and a L of IV fluids. She is tolerating water and crackers. There have been no further episodes of vomiting while in ED. I did discuss possible admission with patient however she states that she would like to be discharged home. I do not feel as though repeat imaging of her abdomen is warranted at this time as lab work and physical exam are essentially unremarkable. No concern for acute abdomen. Suspicion for cyclic vomiting syndrome. I advised her to continue omeprazole and Zofran at home. Educated on avoidance of NSAIDs along with marijuana. Patient has remained stable throughout ED visit today. Discussed worrisome signs and symptoms and when to return to the ED. All questions answered at this time. Patient is agreeable with disposition and stable for discharge. Medications Administered Discontinued Medications Generic Name Dose Route Start Last Admin Trade Name Freq PRN Reason Stop Dose Admin Droperidol 1.25 mg 08/25/23 11:49 08/25/23 12:20 Droperidol 5 Mg/2 Ml Vial IVPUSH 08/25/23 11:50 1.25 mg ONCE ONE Administration Sodium Chloride 1,000 mls @ 999 mls/hr 08/25/23 12:00 08/25/23 13:50 Ns IV 08/25/23 13:00 Infused .Q1H1M CHANCE Infusion Ketorolac Tromethamine 15 mg 08/25/23 12:01 08/25/23 12:20 Ketorolac Tromethamine 15 Mg/Ml Vial IVPUSH 08/25/23 12:02 15 mg ONCE ONE Administration Medical Decision Making Medical Decision Making MDM Narrative: 23 year old female with no significant pmhx presents to the ED today for nausea, vomiting, and epigastric abdominal pain x5 days. Patient hypertensive, vitals otherwise wnl. Afebrile. On exam, abdomen is soft, nondistended, nontender to palpation, no rebound tenderness or guarding. Negative Funes's sign, negative McBurney point tenderness. Negative Rovsing sign. No CVAT bilaterally. Ambulating with steady gait. Skin warm, dry, intact. No rashes. Moist mucous membranes. Differential diagnosis includes viral syndrome, gastroenteritis, gastritis, dehydration, anemia, electrolyte abnormality, cyclical vomiting. Lower suspicion for pancreatitis, cholecystitis, cholangitis, acute abdomen. Lower suspicion for or ectopic as patient is currently menstruating. Unlikely TOA, ovarian torsion, ovarian cyst rupture. Plan for basic labs, UA, UDS and re-evaluation. Differential Diagnosis Differential Diagnoses: The differential diagnosis associated with the presentation includes as above Admission/Observation Consideration of admission/observation: Escalation of care including admission/observation considered Not indicated. Lab Data MDM Lab Attestation statement: I reviewed the patient's lab results. as above 08/25/23 11:41 08/25/23 11:41 Labs: Lab Results 08/25/23 08/25/23 Range/Units 11:41 11:47 WBC 9.3 (4.8-10.8) X10*3/uL RBC 4.52 (4.20-5.50) X10*6/uL Hgb 13.1 (12.0-16.0) g/dl Hct 38.2 (37.0-47.0) % MCV 84.5 (80.0-98.0) fL MCH 29.0 (27.0-33.0) pg MCHC 34.3 (31.0-35.0) g/dl RDW 13.9 (11.0-16.0) % Plt Count 304 (160-400) X10*3/uL MPV 9.6 (9.4-12.3) fL Immature Gran % (Auto) 0.2 (0.0-0.4) % Neut % (Auto) 89.4 H (45-73) % Lymph % (Auto) 8.6 L (20-40) % [place] % (Auto) 1.7 L (2-11) % Eos % (Auto) 0.0 (0-4) % Baso % (Auto) 0.1 (0-2) % Lymph # (Auto) 0.8 L (1.2-4.9) X10*3/uL [place] # (Auto) 0.2 (0.1-1.2) X10*3/uL Eos # (Auto) 0.0 (0.0-0.4) X10*3/uL Baso # (Auto) 0.0 (0.0-0.2) X10*3/uL Abs Immat Gran (auto) 0.02 (0.00-0.03) X10*3/uL Absolute Neuts (auto) 8.3 (2.0-8.3) x10*3/uL Absolute Nucleated RBC 0.000 (0.0-0.012) X10*3/uL Nucleated RBC % (auto) 0.0 (0.0-0.2) /100WBC Sodium 139 (135-145) mmol/L Potassium 3.5 (3.3-5.1) mmol/L Chloride 107 (96-108) mmol/L Carbon Dioxide 20 L (22-29) mmol/L Anion Gap 16 (12-20) BUN 8 L (9-16) mg/dL Creatinine 0.79 (0.5-1.4) mg/dL Estim Creat Clear Calc 96.9 Estimated GFR > 60 Random Glucose 114 (60-115) mg/dL Calcium 9.1 D (8.4-10.2) mg/dL Total Bilirubin 0.4 (0.0-1.0) mg/dL AST 17 (5-31) U/L ALT 11 (0-31) U/L Alkaline Phosphatase 49 (39-117) U/L Total Protein 8.1 H (6.5-8.0) g/dL Albumin 4.7 (3.5-5.0) g/dL Lipase 10 (8-78) U/L Beta HCG, Quant < 2 mIU/mL Urine Color Yellow Urine Appearance Turbid Urine pH >= 9.0 (5.0-9.0) Ur Specific [place] 1.025 (1.005-1.025) Urine Protein 30 (1+) H (Neg-Trace) mg/dL Urine Glucose (UA) Negative (Negative) mg/dL Urine Ketones 80 (Negative) mg/dL Urine Blood Negative (Negative) Urine Nitrite Negative (Negative) Ur Leukocyte Esterase Negative (Negative) Urine RBC 0-2 (0-2) /HPF Urine WBC 0-5 (0-5) /HPF Ur Squamous Epith Cells 0-2 (0-2) /HPF Urine Bacteria None Seen (None Seen) Hyaline Casts 0-2 (0-2) /LPF Urine Test NEGATIVE (NEGATIVE) Urine Opiates Screen Not Detected (Not Detect) Ur Buprenorphine Scrn Not Detected (Not Detect) ng/mL Ur Oxycodone Screen Not Detected (Not Detect) ng/mL Urine Methadone Screen Not Detected (Not Detect) ng/mL Urine Fentanyl Screen Not Detected (Not Detect) Ur Barbiturates Screen Not Detected (Not Detect) Ur Phencyclidine Scrn Not Detected (Not Detect) Ur Amphetamines Screen Not Detected (Not Detect) U Benzodiazepines Scrn Not Detected (Not Detect) Urine Cocaine Screen Not Detected (Not Detect) U Marijuana (THC) Screen POSITIVE H (Not Detect) Ethyl Alcohol < 10 mg/dL Independent Interpretation I performed an independent interpretation of an: CT Scan Interpretation: I have reviewed CT scan abd/pelvis obtained yesterday 08/23 which shows mild thickening of ascending colon, agree with radiologist's interpretation. Radiology Impression Discussion of test interpretation with radiology: I have reviewed the radiologist's reading. Radiologist Impression: EXAMINATION: CT ABDOMEN AND PELVIS WITH CONTRAST CLINICAL INFORMATION: Epigastric pain, intractable nausea and vomiting COMPARISON: CT abdomen pelvis on 01/30/2023 TECHNIQUE: Multidetector volumetric images were obtained from the superior aspect of the liver through the pubic symphysis following administration 85 mL of Omnipaque 350 intravenous contrast. Sagittal and coronal reformatted images were obtained on the technologist's workstation. Oral contrast: No This CT examination was performed using dose optimization techniques as appropriate, variously including the following: *Automated exposure control *Adjustment of mA and/or kV according to patient size (this includes techniques or standardized protocols for targeted exams where dose is matched to indication/reason for exam; i.e. extremities or head) *Use of iterative reconstruction technique DLP: 420 mGy-cm FINDINGS: LUNG BASES: The visualized lung bases are unremarkable. LIVER, GALLBLADDER, AND BILIARY TREE: The liver is normal in size, shape, and attenuation. No focal hepatic lesion or biliary ductal dilatation is present. The gallbladder is unremarkable with no evidence of radiopaque gallstones, gallbladder wall thickening, or obvious pericholecystic inflammatory changes. PANCREAS: Unremarkable. SPLEEN: Unremarkable. ADRENAL GLANDS: Unremarkable. KIDNEYS AND URETERS: The kidneys are normal in size, shape, and attenuation. No hydronephrosis, hydroureter, or calculi seen. No perinephric stranding. BLADDER: Unremarkable. GASTROINTESTINAL TRACT: The small and large bowel are unremarkable. Mild wall thickening of the ascending colon with trace surrounding inflammatory changes. The appendix is not visualized, however no pericecal inflammatory changes are visualized. ABDOMINAL WALL: No significant hernia is appreciated. LYMPH NODES: Normal. VASCULAR: Unremarkable. PELVIC VISCERA: The uterus is unremarkable. There is a left adnexal cyst measuring 2.8 cm. OSSEOUS STRUCTURES: Unremarkable. CT/CT abdomen pelvis w IV con IMPRESSION: 1. Mild wall thickening of the ascending colon with trace surrounding inflammatory changes may be secondary to colitis. 2. Left adnexal cyst measuring 2.8 cm. Fleischner guidelines were followed. Independent Historian Clinical information obtained from an independent historian. History obtained from or confirmed by: Friend External Record Review External record reviewed: Inpatient record Social Determinants Patient?s care significantly limited by Social Determinants of Health including: Other Social Determinant of Health Critical Care Time Critical Care Time Critical Care Time: No Discharge Plan Discharge Clinical Impression: Cyclical vomiting Patient Disposition: Home, Self-Care Instructions: Acute Nausea and Vomiting (ED) Additional Instructions: Your blood work today is reassuring. Your urine is negative for infection/. Your symptoms improved with medications today. Please continue taking the omeprazole and Zofran that was prescribed to you yesterday for pain/ nausea. Take tylenol at home for pain control. Avoid NSAIDS such as motrin as this cause further upset your stomach. Stop smoking marijuana. This can worsen your symptoms. Follow up with your PCP tomorrow. Return with new or worsening symptoms. In the case of an emergency call 911. Prescriptions: No Action ondansetron 4 mg tablet,disintegrating 4 mg PO Q8H PRN (Reason: nausea and vomiting) Qty: 20 0RF ondansetron 4 mg tablet,disintegrating 4 mg PO Q8H PRN (Reason: nausea and vomiting) Qty: 14 0RF ondansetron 4 mg tablet,disintegrating 4 mg PO Q8H PRN (Reason: nausea and vomiting) Qty: 20 0RF omeprazole 20 mg capsule,delayed release(DR/EC) 20 mg PO DAILY 30 Days Qty: 30 0RF omeprazole 20 mg capsule,delayed release(DR/EC) 20 mg PO DAILY Qty: 30 0RF ondansetron 4 mg tablet,disintegrating 4 mg PO Q8H PRN (Reason: nausea and vomiting) Qty: 14 0RF Referrals: [facility] [place] [facility] [Provider Group] Center,[facility] [Primary Care Provider] - Stand Alone Forms: Work/School Release Interventions: ED Discharge Assessment Last Done: 08/25/23 14:02 Discharge Date/Time: 08/25/23 14:03 Print Language: Grenadian
[2023-08-25 11:33] VITALS: BP 122/71; PULSE 67; RESP 17; TEMP 36.9; O2SAT 100
[2023-08-25 11:45] LABS: MANUAL DIFF FLAG NO
[2023-08-25 11:46] LABS: Basophils Percent Auto 0.1 % (0-2); Hematocrit 38.2 % (37.0-47.0); Hemoglobin 13.1 g/dl (12.0-16.0); Imm Gran Abs Auto 0.02 X10*3/uL (0.00-0.03); Imm Gran Pct Auto 0.2 % (0.0-0.4); Lymphocytes Absolute Auto 0.8 X10*3/uL (1.2-4.9); Lymphocytes Percent Auto 8.6 % (20-40); Mean Corpuscular HGB Conc 34.3 g/dl (31.0-35.0); Mean Corpuscular Volume 84.5 fL (80.0-98.0); Mean Platelet Volume 9.6 fL (9.4-12.3); Monocytes Absolute Auto 0.2 X10*3/uL (0.1-1.2); Monocytes Percent Auto 1.7 % (2-11); Neutrophils Absolute Auto 8.3 x10*3/uL (2.0-8.3); Neutrophils Percent Auto 89.4 % (45-73); Platelet Count 304 X10*3/uL (160-400); Red Blood Count 4.52 X10*6/uL (4.20-5.50); Red Cell Distribution Width 13.9 % (11.0-16.0); White Blood Count 9.3 X10*3/uL (4.8-10.8)
[2023-08-25 11:47] VITALS: BP 132/82; PULSE 71; RESP 14; TEMP 37.2; O2SAT 100
[2023-08-25 11:55] LABS: Appearance Urine Turbid; Color Urine Yellow; Glucose Urine UA Negative (Negative); Leukocyte Esterase Urine Negative (Negative); Nitrite Urine Negative (Negative); PH >= 9.0 (5.0-9.0); Specific Gravity - Urine 1.025 (1.005-1.025); UMIC TRIGGER UACC YES; UPreg QC Valid YES; Urine Blood Negative (Negative); Urine Ketones 80 mg/dL (Negative); Urine Pregnancy NEGATIVE (NEGATIVE); Urine Protein 30 (1+) mg/dL (Neg-Trace)
[2023-08-25 11:58] LABS: Bacteria Urine None Seen (None Seen); Hyaline Casts Urine 0-2 /LPF (0-2); RBC Urine 0-2 /HPF (0-2); Squamous Epithelial Cell Urine 0-2 /HPF (0-2); WBC Urine 0-5 /HPF (0-5)
--- NOTE | 2023-08-25 12:07 | MHC.EDTECH ---
pt vital signs taken, blood drawn, urine sample sent to lab, call greenberg within reach.
[2023-08-25] MEDS: Ketorolac Tromethamine 15 MG/ML VIAL IVPUSH (12:20)
[2023-08-25] MEDS: 0.9 % Sodium Chloride 1,000 ML 999 ML IV (12:20)
[2023-08-25] MEDS: droPERidol 5 MG/2 ML VIAL 1.25 MG IVPUSH (12:20)
[2023-08-25 12:23] LABS: Amphetamine Screen Urine Not Detected (Not Detect); Barbiturates, Urine Not Detected (Not Detect); Benzodiazepines Screen Urine Not Detected (Not Detect); Buprenorphine Scr Not Detected (Not Detect); Cannabinoid Screen Urine POSITIVE (Not Detect); Cocaine Screen Urine Not Detected (Not Detect); Fentanyl, urine Not Detected (Not Detect); Methadone Screen, Urine Not Detected (Not Detect); Opiate Screen Urine Not Detected (Not Detect); Oxycodone Screen Urine Not Detected (Not Detect); Phencyclidine Screen Urine Not Detected (Not Detect)
--- NOTE | 2023-08-25 12:40 | PC.NURSE ---
Pt arrives to ED with c/o abd pain with frequent vomiting. 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 A&Ox3, low grade temp 99.0 Pt medicated per MAR with fluids running. Pt is resting with the lights off, underwriting clerk at bedside.
[2023-08-25 12:46] LABS: Alanine Aminotransferase 11 U/L (0-31); Albumin Level 4.7 g/dL (3.5-5.0); Alkaline Phosphatase 49 U/L (39-117); Anion Gap 16 (12-20); Aspartate Amino Transferase 17 U/L (5-31); Bilirubin Total 0.4 mg/dL (0.0-1.0); Blood Urea Nitrogen 8 mg/dL (9-16); Calcium 9.1 mg/dL (8.4-10.2); Carbon Dioxide 20 mmol/L (22-29); Chloride 107 mmol/L (96-108); Creatinine Clr Calc Pharmacy 96.9; Estimated Glomerular Filt Rate > 60; Ethanol < 10 mg/dL; Glucose Random 114 mg/dL (60-115); Lipase 10 U/L (8-78); Potassium 3.5 mmol/L (3.3-5.1); Sodium 139 mmol/L (135-145); Total Protein 8.1 g/dL (6.5-8.0)
[2023-08-25 13:00] LABS: HCG Quantitative < 2 mIU/mL
--- NOTE | 2023-08-25 13:16 | PC.NURSE ---
Call yari answered, Pt report she is feel way better now. Pt is smiling. Will report to provider.
[2023-08-25 14:02] VITALS: BP 116/72; PULSE 62; RESP 14; TEMP 36.8; O2SAT 100
== END 2023-08-25 14:03 | disposition home or self-care (01) ==
PROVIDERS: Physician Assistant; Physician Assistant Medical; Emergency Provider Emergency Medicine
DX: K52.9 Noninfective gastroenteritis and colitis, unspecified (principal); R11.15 Cyclical vomiting syndrome unrelated to migraine; R11.2 Nausea with vomiting, unspecified; R10.13 Epigastric pain; Z79.899 Other long term (current) drug therapy; Z51.81 Encounter for therapeutic drug level monitoring
CPT/HCPCS: 36415; 80053; 80307; 81001; 81025; 83690; 84702; 85025; 96360; 96374; 96375; 99284; 99285; J1790; J1885

== ENCOUNTER 2023-08-26 07:31 | Emergency (ER) | payer OTHER, SELFPAY ==
--- NOTE | ~2023-08-26 | US_ITS ---
EXAMINATION: US ABDOMEN LIMITED CLINICAL INFORMATION: Vomiting. COMPARISON: None available. TECHNIQUE: Real-time imaging of the right upper quadrant limited to the gallbladder. FINDINGS: PANCREAS: Not examined LIVER: Not examined GALLBLADDER: No gallstones or pericholecystic fluid. There is some minimal focal wall thickening. Funes's sign is reported positive by the outside sales advertising executive. COMMON BILE DUCT: Not examined RIGHT KIDNEY: Not examined. FREE FLUID: Not assessed US/US abdomen limited IMPRESSION: No gallstones are seen. There is some minimal focal wall thickening and a positive Funes's sign.
[2023-08-26 07:34] VITALS: BP 137/84; PULSE 74; RESP 18; TEMP 37.1; O2SAT 100; BMI 26.2
--- NOTE | 2023-08-26 07:47 | ECG_ITS ---
Test Reason : check qtc Blood Pressure : / mmHG Vent. Rate : 067 BPM Atrial Rate : 067 BPM P-R Int : 162 ms QRS Dur : 094 ms QT Int : 408 ms P-R-T Axes : 025 059 033 degrees QTc Int : 431 ms Normal sinus rhythm Normal ECG No previous ECGs available Referred By: Juanita Gonzalez Electronically Signed By:DEJA KASPER MD
--- NOTE | 2023-08-26 07:52 | ED_ITS ---
HPI - Nausea/Vomiting/Diarrhea General Chief complaint: Nausea/Vomiting/Diarrhea Stated complaint: vomiting Time Seen by Provider: 08/26/23 07:45 Source: patient and old records reviewed Mode of arrival: ambulatory Limitations: no limitations History of Present Illness ED Provider: THI SHETH Narrative: 23 yo female with PMH of anemia seen here on 08/23 and 08/[address] scan on 08/23 showed possible mild colitis she tests positive for THC each day she was sent home with PPI and nausea medications she returns today with c/o persistent n/v did have one episode of loose stool today. She notes no travel, abx use or sick contacts. She has never had this before. She is a daily smoker of THC. MD elicited complaint: nausea, vomiting and abdominal pain Onset (ago): day(s) (few) Description of vomiting: watery Description of diarrhea: watery Associated nausea: Yes Associated abdominal pain: Yes Location of pain: epigastric Radiation: diffuse Pain consistency: intermittent Severity: moderate Quality: aching Exacerbating factors: eating Relieving factors: none Context: marijuana use Associated symptoms: loss of appetite, malaise and weakness Related Data Previous Rx's ?Medication ?Instructions ?Recorded ondansetron 4 mg disintegrating 4 mg PO Q8H PRN nausea and 10/07/20 tablet vomiting #20 tabs ondansetron 4 mg disintegrating 4 mg PO Q8H PRN nausea and 05/15/22 tablet vomiting #14 tabs omeprazole 20 mg capsule,delayed 20 mg PO DAILY 30 days #30 caps 05/16/22 release ondansetron 4 mg disintegrating 4 mg PO Q8H PRN nausea and 01/30/23 tablet vomiting #20 tabs omeprazole 20 mg capsule,delayed 20 mg PO DAILY #30 caps 08/24/23 release ondansetron 4 mg disintegrating 4 mg PO Q8H PRN nausea and 08/24/23 tablet vomiting #14 tabs lorazepam 1 mg tablet (Ativan) 1 mg PO BID PRN nausea and 08/26/23 vomiting #10 tabs metoclopramide HCl 10 mg tablet 10 mg PO Q6H PRN nausea and 08/26/23 (Reglan) vomiting #30 tabs promethazine 25 mg rectal 25 mg IN Q6H PRN nausea and 08/26/23 suppository vomiting #12 ea Allergies Allergy/AdvReac Type Severity Reaction Status Date / Time dextran sulfate Allergy n/v Verified 08/26/23 07:37 tachycardia cough Review of Systems 2 Review of Systems: Constitutional : No Weight loss, No Fever, No Chills ENT/Mouth : No sore throat, No Rhinorrhea Eyes: No Swelling, No Redness Cardiovascular : No Chest Pain, No SOB, NoEdema Respiratory : No Cough, No Sputum, No Wheezing Gastrointestinal : Positive Nausea, Positive Vomiting, positive Diarrhea, positive abdominal Pain, No Hematochezia, No Melena Genitourinary : No Dysuria, No Urinary Frequency, No Hematuria, No Urgency Musculoskeletal : No joint pain, No Myalgias, No Joint Swelling Skin : No Skin Lesions, No rash Neuro : No Weakness, No Numbness, No Dizziness, No Headache Psych : No Anxiety/Panic, No Depression Heme/Lymph: No Bruising, No Lymphadenopathy Endocrine : No Polyuria, No Polydipsia All other systems reviewed and are negative. Gastrointestinal: Gastrointestinal: Reports nausea PMFSH Past Medical History Attestation statement: The following information was validated with the patient. Source: old records reviewed Medical History No known health problems Surgical History No history of previous surgery Social History Social History Household Members: Family Housing: Apartment Are you a primary career consultant to a significant other at home: No Do you presently have visiting nurse or other home services: No Alcohol intake: never Patient Tobacco Use Status: Never used Tobacco Substance Use Type: Marijuana Advance Directives: No Advance Directives Information Provided: No service: No Current occupational status: unemployed Physical Exam 2 Vital Signs: Vital Signs: Last Vital Signs Temp 98.7 F 08/26/23 07:34 Pulse 74 08/26/23 07:34 Resp 16 08/26/23 09:17 BP 137/84 08/26/23 07:34 Pulse Ox 100 08/26/23 07:34 O2 Del Method Room Air 08/26/23 07:34 BMI result Body Mass Index 26.2 Appearance: Alert. Oriented X3. active vomiting mild acute distress. Eyes: Pupils equal, round and reactive to light. ENT: Pharynx dry MM Neck: Normal inspection. Neck supple. CVS: Normal heart rate and rhythm. Pulses normal. Respiratory: No respiratory distress. Breath sounds normal. Abdomen: Soft and mild epigastric pain no rebound Skin: Skin warm and dry. pale skin color. Normal skin turgor. Extremities: No lower extremity edema. No calf ttp Neuro: Oriented X 3. No motor deficit. No sensory deficit. Medications Administered Discontinued Medications Generic Name Dose Route Start Last Admin Trade Name Freq PRN Reason Stop Dose Admin Droperidol 1.25 mg 08/26/23 07:47 08/26/23 09:16 Droperidol 5 Mg/2 Ml Vial IVPUSH 08/26/23 07:48 1.25 mg ONCE ONE Administration Sodium Chloride 1,000 mls @ 999 mls/hr 08/26/23 07:47 08/26/23 11:07 Ns IV 08/26/23 08:47 Infused .Q1H1M ONE Infusion Sodium Chloride 1,000 mls @ 999 mls/hr 08/26/23 08:56 08/26/23 11:07 Ns IV 08/26/23 09:56 Infused .Q1H1M ONE Infusion Potassium Chloride 10 meq in 100 mls @ 100 mls/hr 08/26/23 09:15 08/26/23 11:12 Potassium Chloride/H20 IV 08/26/23 11:14 100 mls/hr Q1H CHANCE Administration Morphine Sulfate 2 mg 08/26/23 07:47 08/26/23 09:17 Morphine Sulfate 2 Mg/Ml Cartridge IVPUSH 08/26/23 07:48 2 mg ONCE ONE Administration Protocol Medical Decision Making Medical Decision Making [facility] Narrative: 23 yo female with PMH of anemia seen here on 08/23 and 08/[address] scan on 08/23 showed possible mild colitis she tests positive for THC each day she was sent home with PPI and nausea medications she returns today with c/o no improvement and persistent vomiting - at this time will obtain basic labs, hydrate x 2L, obtain US to rule out biliary pathology trial droperidol we did have a long conversation about THC use. She will try to abstain x 1 month to see if her symptoms improve. Differential Diagnosis Differential Diagnoses: The differential diagnosis associated with the presentation includes gastritis, viral syndrome, cyclical vomiting, biliary colic Admission/Observation Consideration of admission/observation: Escalation of care including admission/observation considered feels much better wants to go home US no barnes sign fluid and wall likely due to volume and resuscitation Lab Data MDM Lab Attestation statement: I reviewed the patient's lab results. 08/26/23 08:32 08/26/23 08:32 Labs: Lab Results 08/26/23 Range/Units 08:32 WBC 11.4 H (4.8-10.8) X10*3/uL RBC 4.36 (4.20-5.50) X10*6/uL Hgb 12.5 (12.0-16.0) g/dl Hct 36.6 L (37.0-47.0) % MCV 83.9 (80.0-98.0) fL MCH 28.7 (27.0-33.0) pg MCHC 34.2 (31.0-35.0) g/dl RDW 13.9 (11.0-16.0) % Plt Count 279 (160-400) X10*3/uL MPV 9.6 (9.4-12.3) fL Immature Gran % (Auto) 0.4 (0.0-0.4) % Neut % (Auto) 83.1 H (45-73) % Lymph % (Auto) 11.8 L (20-40) % [place] % (Auto) 4.4 (2-11) % Eos % (Auto) 0.0 (0-4) % Baso % (Auto) 0.3 (0-2) % Lymph # (Auto) 1.3 (1.2-4.9) X10*3/uL [place] # (Auto) 0.5 (0.1-1.2) X10*3/uL Eos # (Auto) 0.0 (0.0-0.4) X10*3/uL Baso # (Auto) 0.0 (0.0-0.2) X10*3/uL Abs Immat Gran (auto) 0.04 H (0.00-0.03) X10*3/uL Absolute Neuts (auto) 9.5 H (2.0-8.3) x10*3/uL Absolute Nucleated RBC 0.000 (0.0-0.012) X10*3/uL Nucleated RBC % (auto) 0.0 (0.0-0.2) /100WBC Sodium 141 (135-145) mmol/L Potassium 3.0 L (3.3-5.1) mmol/L Chloride 110 H (96-108) mmol/L Carbon Dioxide 19 L (22-29) mmol/L Anion Gap 15 (12-20) BUN 9 (9-16) mg/dL Creatinine 0.79 (0.5-1.4) mg/dL Estim Creat Clear Calc 94.0 Estimated GFR > 60 Random Glucose 120 H (60-115) mg/dL Calcium 9.0 (8.4-10.2) mg/dL Magnesium 1.9 (1.6-2.6) mg/dL Total Bilirubin 0.5 (0.0-1.0) mg/dL Direct Bilirubin 0.2 (0.0-0.5) mg/dL AST 16 (5-31) U/L ALT 12 (0-31) U/L Alkaline Phosphatase 46 (39-117) U/L Total Protein 7.2 (6.5-8.0) g/dL Albumin 4.3 (3.5-5.0) g/dL Lipase 14 (8-78) U/L Beta HCG, Quant < 2 mIU/mL Independent Interpretation I performed an independent interpretation of an: EKG and Ultrasound (no cholecystitis - changed read no barnes's sign per tech) Interpretation: Rate: 67 Rhythm: NSR Gracey: normal Normal P waves. Normal ROHIT. Normal QRS complex. ST T wave : normal no SUMMER, inverted t wave V1 qTC: 431 prior studies: The study has been interpreted contemporaneously by me. . Radiology Impression Discussion of test interpretation with radiology: I have reviewed the radiologist's reading. Independent Historian Clinical information obtained from an independent historian. History obtained from or confirmed by: Friend External Record Review External record reviewed: Inpatient record Prescription Management I considered prescription management with: Other Critical Care Time Critical Care Time Critical Care Time: Yes Total Critical Care Time: 45 Attestation: IVF x 2L, IV potassium, review of records Discharge Plan Discharge Clinical Impression: Cyclical vomiting, Acute hypokalemia Patient Disposition: Home, Self-Care Instructions: Hypokalemia (ED), Acute Nausea and Vomiting (ED) Additional Instructions: return for worsening symptoms or concerns liquid diet today then advance slowly follow up with your doctor take medications regularly for the next 3 days stop smoking marijuana may take a month to get out of your system Prescriptions: New promethazine 25 mg suppository 25 mg IN Q6H PRN (Reason: nausea and vomiting) Qty: 12 0RF metoclopramide HCl [Reglan] 10 mg tablet 10 mg PO Q6H PRN (Reason: nausea and vomiting) Qty: 30 0RF lorazepam [Ativan] 1 mg tablet 1 mg PO BID PRN (Reason: nausea and vomiting) Qty: 10 0RF No Action ondansetron 4 mg tablet,disintegrating 4 mg PO Q8H PRN (Reason: nausea and vomiting) Qty: 20 0RF ondansetron 4 mg tablet,disintegrating 4 mg PO Q8H PRN (Reason: nausea and vomiting) Qty: 14 0RF ondansetron 4 mg tablet,disintegrating 4 mg PO Q8H PRN (Reason: nausea and vomiting) Qty: 20 0RF omeprazole 20 mg capsule,delayed release(DR/EC) 20 mg PO DAILY 30 Days Qty: 30 0RF omeprazole 20 mg capsule,delayed release(DR/EC) 20 mg PO DAILY Qty: 30 0RF ondansetron 4 mg tablet,disintegrating 4 mg PO Q8H PRN (Reason: nausea and vomiting) Qty: 14 0RF Print Language: Albanian
[2023-08-26 08:35] LABS: MANUAL DIFF FLAG NO
[2023-08-26 08:36] LABS: Basophils Percent Auto 0.3 % (0-2); Hematocrit 36.6 % (37.0-47.0); Hemoglobin 12.5 g/dl (12.0-16.0); Imm Gran Abs Auto 0.04 X10*3/uL (0.00-0.03); Imm Gran Pct Auto 0.4 % (0.0-0.4); Lymphocytes Absolute Auto 1.3 X10*3/uL (1.2-4.9); Lymphocytes Percent Auto 11.8 % (20-40); Mean Corpuscular HGB Conc 34.2 g/dl (31.0-35.0); Mean Corpuscular Hemoglobin 28.7 pg (27.0-33.0); Mean Corpuscular Volume 83.9 fL (80.0-98.0); Mean Platelet Volume 9.6 fL (9.4-12.3); Monocytes Absolute Auto 0.5 X10*3/uL (0.1-1.2); Monocytes Percent Auto 4.4 % (2-11); Neutrophils Absolute Auto 9.5 x10*3/uL (2.0-8.3); Neutrophils Percent Auto 83.1 % (45-73); Platelet Count 279 X10*3/uL (160-400); Red Blood Count 4.36 X10*6/uL (4.20-5.50); Red Cell Distribution Width 13.9 % (11.0-16.0); White Blood Count 11.4 X10*3/uL (4.8-10.8)
[2023-08-26 09:02] LABS: Alanine Aminotransferase 12 U/L (0-31); Albumin Level 4.3 g/dL (3.5-5.0); Alkaline Phosphatase 46 U/L (39-117); Anion Gap 15 (12-20); Aspartate Amino Transferase 16 U/L (5-31); Bilirubin Direct 0.2 mg/dL (0.0-0.5); Bilirubin Total 0.5 mg/dL (0.0-1.0); Blood Urea Nitrogen 9 mg/dL (9-16); Carbon Dioxide 19 mmol/L (22-29); Chloride 110 mmol/L (96-108); Estimated Glomerular Filt Rate > 60; Glucose Random 120 mg/dL (60-115); Lipase 14 U/L (8-78); Magnesium 1.9 mg/dL (1.6-2.6); Sodium 141 mmol/L (135-145); Total Protein 7.2 g/dL (6.5-8.0)
[2023-08-26 09:07] LABS: HCG Quantitative < 2 mIU/mL
[2023-08-26] MEDS: droPERidol 5 MG/2 ML VIAL 1.25 MG IVPUSH (09:16)
[2023-08-26 09:17] VITALS: RESP 16
[2023-08-26] MEDS: Morphine Sulfate 2 MG/ML CARTRIDGE IVPUSH (09:17)
[2023-08-26] MEDS: 0.9 % Sodium Chloride 1,000 ML 999 ML IV ×2 (09:18→09:47)
[2023-08-26] MEDS: Potassium Chloride/H20 10 MEQ/100 ML PIGGYBACK 100 MEQ IV ×2 (09:44→11:12)
[2023-08-26] MEDS: Potassium Chloride ER 20 MEQ TAB.ER.PRT PO (12:15)
[2023-08-26 12:42] VITALS: BP 136/85; PULSE 67; RESP 16; TEMP 37.3; O2SAT 98
== END 2023-08-26 12:43 | disposition home or self-care (01) ==
PROVIDERS: Emergency Provider Emergency Medicine
DX: R11.15 Cyclical vomiting syndrome unrelated to migraine (principal); R11.2 Nausea with vomiting, unspecified; R10.13 Epigastric pain; E87.6 Hypokalemia; F12.90 Cannabis use, unspecified, uncomplicated; Z79.899 Other long term (current) drug therapy
CPT/HCPCS: 36415; 76705; 80048; 80076; 83690; 83735; 84702; 85025; 93005; 96361; 96365; 96375; 99283; 99284; J1790; J2270; J3480

== ENCOUNTER → 2023-08-26 07:47 | Outpatient (BNV) | payer OTHER, SELFPAY | PROVIDERS: Emergency Provider Emergency Medicine; Visit Provider Internal Medicine Cardiovascular Disease | DX: R11.2 Nausea with vomiting, unspecified (principal) | CPT/HCPCS: 93010 ==

== ENCOUNTER 2023-08-27 08:47 | Emergency (ER) | payer OTHER, SELFPAY ==
[2023-08-27 09:02] VITALS: BP 133/88; PULSE 82; RESP 16; TEMP 36.2; O2SAT 100; BMI 26.4
[2023-08-27 10:18] VITALS: BP 144/87; PULSE 67; RESP 14; TEMP 37; O2SAT 100
[2023-08-27 10:34] LABS: MANUAL DIFF FLAG NO
--- NOTE | 2023-08-27 10:34 | ED_ITS ---
HPI - Abdominal Pain General Chief Complaint: Abdominal Pain Stated Complaint: vomiting, stomach pain Time Seen by Provider: 08/27/23 10:29 Source: patient Mode of arrival: ambulatory Limitations: no limitations History of Present Illness HPI narrative: 23-year-old female cannabis hyperemesis recurrent visits has been here every day for the past week presents emergency department complaining of continued abdominal pain nausea and vomiting. States she has not smoked marijuana for a week. She does take showers for pain she has take some Zofran before coming Related Data Previous Rx's ?Medication ?Instructions ?Recorded ondansetron 4 mg disintegrating 4 mg PO Q8H PRN nausea and 10/07/20 tablet vomiting #20 tabs ondansetron 4 mg disintegrating 4 mg PO Q8H PRN nausea and 05/15/22 tablet vomiting #14 tabs omeprazole 20 mg capsule,delayed 20 mg PO DAILY 30 days #30 caps 05/16/22 release ondansetron 4 mg disintegrating 4 mg PO Q8H PRN nausea and 01/30/23 tablet vomiting #20 tabs omeprazole 20 mg capsule,delayed 20 mg PO DAILY #30 caps 08/24/23 release ondansetron 4 mg disintegrating 4 mg PO Q8H PRN nausea and 08/24/23 tablet vomiting #14 tabs lorazepam 1 mg tablet (Ativan) 1 mg PO BID PRN nausea and 08/26/23 vomiting #10 tabs metoclopramide HCl 10 mg tablet 10 mg PO Q6H PRN nausea and 08/26/23 (Reglan) vomiting #30 tabs promethazine 25 mg rectal 25 mg NC Q6H PRN nausea and 08/26/23 suppository vomiting #12 ea Allergies Allergy/AdvReac Type Severity Reaction Status Date / Time dextran sulfate Allergy n/v Verified 08/27/23 09:04 tachycardia cough Review of Systems Review of Systems Review of systems: General: Patient denies any fever chills recent illness or falls Musculoskeletal: Denies back pain or body aches or other injuries HEENT: denies headache, runny nose, ear pain Respiratory: denies shortness of breath, cough Cardiovascular: no chest pain or palpitations : denies dysuria, frequency Abdomen: nausea vomiting abdominal pain Extremities: no swelling, no pain Skin: no diaphoresis Yes all other systems are reviewed and are negative PMFSH Past Medical History Medical History No known health problems Surgical History No history of previous surgery Social History Social History Household Members: Family Housing: Apartment Are you a primary customer care agent to a significant other at home: No Do you presently have visiting nurse or other home services: No Alcohol intake: never Patient Tobacco Use Status: Never used Tobacco Smoked in Last 30 Days: No Use of substances other than those prescribed or required for medical reasons: Yes Substance Use Type: Marijuana Advance Directives: No Advance Directives Information Provided: Yes Do you have a plan to hurt others: No Plan service: No Current occupational status: unemployed Physical Exam ED Vital Signs: Vital Signs - 24 hr 08/27/23 09:02 08/27/23 10:18 Temperature 97.2 F 98.6 F Pulse Rate 82 67 Respiratory Rate 16 14 Blood Pressure 133/88 144/87 H Pulse Oximetry 100 100 Oxygen Delivery Method Room Air Room Air BMI result Body Mass Index 26.4 General: Well-appearing well-nourished in no signs of distress HEENT: Normocephalic atraumatic Neck: No signs of JVD, no masses no tenderness or lymphadenopathy Cardiovascular: Regular rate and rhythm Respiratory: Clear to auscultation bilaterally Abdomen: Soft nontender no masses Extremities: Normal pedal pulses no signs of edema Skin: Dry warm no rashes Back: No tenderness full ROM Course Course Course Narrative: Labs show improved potassium I will give IV potassium as well as oral patient just got medicated we will get the states and cream patient looks well has normal vitals feel the patient likely be able to be discharged. Reevaluation(s) Reevaluation #1: Patient continues to sleep comfortably I will discharge home at this time Medical Decision Making Medical Decision Making [facility] Narrative: I will place capsaicin cream over the abdomen give the patient Haldol Benadryl Ativan and check labs and reassess Differential Diagnosis Differential Diagnoses: The differential diagnosis associated with the presentation includes Hypokalemia hypomagnesemia cannabis hyperemesis dehydration electrolyte abnormality Admission/Observation Consideration of admission/observation: Escalation of care including admission/observation considered Lab Data [facility] Lab Attestation statement: I reviewed the patient's lab results. 08/27/23 10:30 08/27/23 10:30 Labs: Lab Results 08/27/23 08/27/23 Range/Units 10:30 11:43 WBC 9.0 (4.8-10.8) X10*3/uL RBC 4.38 (4.20-5.50) X10*6/uL Hgb 12.7 (12.0-16.0) g/dl Hct 37.2 (37.0-47.0) % MCV 84.9 (80.0-98.0) fL MCH 29.0 (27.0-33.0) pg MCHC 34.1 (31.0-35.0) g/dl RDW 13.6 (11.0-16.0) % Plt Count 285 (160-400) X10*3/uL MPV 9.8 (9.4-12.3) fL Immature Gran % (Auto) 0.3 (0.0-0.4) % Neut % (Auto) 88.3 H (45-73) % Lymph % (Auto) 8.7 L (20-40) % [place] % (Auto) 2.6 (2-11) % Eos % (Auto) 0.0 (0-4) % Baso % (Auto) 0.1 (0-2) % Lymph # (Auto) 0.8 L (1.2-4.9) X10*3/uL [place] # (Auto) 0.2 (0.1-1.2) X10*3/uL Eos # (Auto) 0.0 (0.0-0.4) X10*3/uL Baso # (Auto) 0.0 (0.0-0.2) X10*3/uL Abs Immat Gran (auto) 0.03 (0.00-0.03) X10*3/uL Absolute Neuts (auto) 8.0 (2.0-8.3) x10*3/uL Absolute Nucleated RBC 0.000 (0.0-0.012) X10*3/uL Nucleated RBC % (auto) 0.0 (0.0-0.2) /100WBC Sodium 137 (135-145) mmol/L Potassium 3.1 L (3.3-5.1) mmol/L Chloride 105 (96-108) mmol/L Carbon Dioxide 21 L (22-29) mmol/L Anion Gap 14 (12-20) BUN 6 L (9-16) mg/dL Creatinine 0.74 (0.5-1.4) mg/dL Estim Creat Clear Calc 100.9 Estimated GFR > 60 Random Glucose 108 (60-115) mg/dL Calcium 9.1 (8.4-10.2) mg/dL Magnesium 1.8 (1.6-2.6) mg/dL Total Bilirubin 0.4 (0.0-1.0) mg/dL Direct Bilirubin 0.2 (0.0-0.5) mg/dL AST 16 (5-31) U/L ALT 13 (0-31) U/L Alkaline Phosphatase 49 (39-117) U/L Total Protein 7.5 (6.5-8.0) g/dL Albumin 4.4 (3.5-5.0) g/dL Lipase 14 (8-78) U/L Urine Color Yellow Urine Appearance Clear Urine pH 8.0 (5.0-9.0) Ur Specific [place] <= 1.005 (1.005-1.025) Urine Protein Negative (Neg-Trace) mg/dL Urine Glucose (UA) Negative (Negative) mg/dL Urine Ketones 15 (Negative) mg/dL Urine Blood Small (1+) H (Negative) Urine Nitrite Negative (Negative) Ur Leukocyte Esterase Negative (Negative) Urine RBC 6-10 H (0-2) /HPF Urine WBC 0-5 (0-5) /HPF Ur Squamous Epith Cells 0-2 (0-2) /HPF Urine Bacteria None Seen (None Seen) Hyaline Casts 0-2 (0-2) /LPF External Record Review External record reviewed: Inpatient record, Office record, Outpatient record and Prior outpatient labs Medications Administered Discontinued Medications Generic Name Dose Route Start Last Admin Trade Name Luiza PRN Reason Stop Dose Admin Capsaicin 1 appl 08/27/23 10:33 08/27/23 12:00 Capsaicin 0.025% Cream 60 Gm Tube TOPICAL 08/27/23 10:34 1 appl ONCE ONE Administration Protocol Diphenhydramine HCl 25 mg 08/27/23 10:31 08/27/23 10:47 Diphenhydramine Hcl 50 Mg/Ml Vial IVPUSH 08/27/23 10:32 25 mg ONCE ONE Administration Haloperidol Lactate 5 mg 08/27/23 10:31 08/27/23 10:50 Haloperidol Lactate 5 Mg/Ml Vial IVPUSH 08/27/23 10:32 5 mg STAT STA Administration Sodium Chloride 1,000 mls @ 999 mls/hr 08/27/23 10:45 08/27/23 12:09 Ns IV 08/27/23 11:45 Infused .Q1H1M CHANCE Infusion Potassium Chloride 10 meq in 100 mls @ 100 mls/hr 08/27/23 11:02 08/27/23 12:20 Potassium Chloride/H20 IV 08/27/23 12:01 Infused ONCE ONE Infusion Lorazepam 1 mg 08/27/23 10:31 08/27/23 10:48 Lorazepam 2 Mg/Ml Vial IVPUSH 08/27/23 10:32 1 mg ONCE ONE Administration Potassium Chloride 20 meq 08/27/23 11:02 08/27/23 11:14 Potassium Chloride Er 20 Meq Tab.Er.Prt PO 08/27/23 11:03 20 meq ONCE ONE Administration Discharge Plan Discharge Clinical Impression: Cannabis hyperemesis syndrome concurrent with and due to cannabis dependence, Acute hypokalemia Patient Disposition: Home, Self-Care Instructions: Cannabis Abuse (ED), Hypokalemia (ED) Additional Instructions: You were seen today for vomiting. You had labs and were given medications. We are aware that no one believes this is related to marijuana use but this is likely related to your cannabis use. Cannabis deposits in your fat cells and will stay in your system for 90 days. We don't know why some people are more affected but please avoid cannabis as you have recurrent disabling vomiting. Please call to follow up. Prescriptions: No Action ondansetron 4 mg tablet,disintegrating 4 mg PO Q8H PRN (Reason: nausea and vomiting) Qty: 20 0RF ondansetron 4 mg tablet,disintegrating 4 mg PO Q8H PRN (Reason: nausea and vomiting) Qty: 14 0RF ondansetron 4 mg tablet,disintegrating 4 mg PO Q8H PRN (Reason: nausea and vomiting) Qty: 20 0RF omeprazole 20 mg capsule,delayed release(DR/EC) 20 mg PO DAILY 30 Days Qty: 30 0RF omeprazole 20 mg capsule,delayed release(DR/EC) 20 mg PO DAILY Qty: 30 0RF ondansetron 4 mg tablet,disintegrating 4 mg PO Q8H PRN (Reason: nausea and vomiting) Qty: 14 0RF promethazine 25 mg suppository 25 mg NC Q6H PRN (Reason: nausea and vomiting) Qty: 12 0RF metoclopramide HCl [Reglan] 10 mg tablet 10 mg PO Q6H PRN (Reason: nausea and vomiting) Qty: 30 0RF lorazepam [Ativan] 1 mg tablet 1 mg PO BID PRN (Reason: nausea and vomiting) Qty: 10 0RF Print Language: Haitian
[2023-08-27 10:37] LABS: Basophils Percent Auto 0.1 % (0-2); Hematocrit 37.2 % (37.0-47.0); Hemoglobin 12.7 g/dl (12.0-16.0); Imm Gran Abs Auto 0.03 X10*3/uL (0.00-0.03); Imm Gran Pct Auto 0.3 % (0.0-0.4); Lymphocytes Absolute Auto 0.8 X10*3/uL (1.2-4.9); Lymphocytes Percent Auto 8.7 % (20-40); Mean Corpuscular HGB Conc 34.1 g/dl (31.0-35.0); Mean Corpuscular Volume 84.9 fL (80.0-98.0); Mean Platelet Volume 9.8 fL (9.4-12.3); Monocytes Absolute Auto 0.2 X10*3/uL (0.1-1.2); Monocytes Percent Auto 2.6 % (2-11); Neutrophils Percent Auto 88.3 % (45-73); Platelet Count 285 X10*3/uL (160-400); Red Blood Count 4.38 X10*6/uL (4.20-5.50); Red Cell Distribution Width 13.6 % (11.0-16.0)
[2023-08-27] MEDS: 0.9 % Sodium Chloride 1,000 ML 999 ML IV (10:46)
[2023-08-27] MEDS: diphenhydrAMINE HCL 50 MG/ML VIAL 25 MG IVPUSH (10:47)
[2023-08-27] MEDS: LORazepam 2 MG/ML VIAL 1 MG IVPUSH (10:48)
[2023-08-27] MEDS: Haloperidol Lactate 5 MG/ML VIAL IVPUSH (10:50)
[2023-08-27 10:56] LABS: Alanine Aminotransferase 13 U/L (0-31); Albumin Level 4.4 g/dL (3.5-5.0); Alkaline Phosphatase 49 U/L (39-117); Anion Gap 14 (12-20); Aspartate Amino Transferase 16 U/L (5-31); Bilirubin Direct 0.2 mg/dL (0.0-0.5); Bilirubin Total 0.4 mg/dL (0.0-1.0); Blood Urea Nitrogen 6 mg/dL (9-16); Calcium 9.1 mg/dL (8.4-10.2); Carbon Dioxide 21 mmol/L (22-29); Chloride 105 mmol/L (96-108); Creatinine Clr Calc Pharmacy 100.9; Estimated Glomerular Filt Rate > 60; Glucose Random 108 mg/dL (60-115); Lipase 14 U/L (8-78); Magnesium 1.8 mg/dL (1.6-2.6); Potassium 3.1 mmol/L (3.3-5.1); Sodium 137 mmol/L (135-145); Total Protein 7.5 g/dL (6.5-8.0)
[2023-08-27] MEDS: Potassium Chloride ER 20 MEQ TAB.ER.PRT PO (11:14)
[2023-08-27] MEDS: Potassium Chloride/H20 10 MEQ/100 ML PIGGYBACK 100 MEQ IV (11:17)
[2023-08-27 11:48] LABS: Appearance Urine Clear; Color Urine Yellow; Glucose Urine UA Negative (Negative); Leukocyte Esterase Urine Negative (Negative); Nitrite Urine Negative (Negative); Specific Gravity - Urine <= 1.005 (1.005-1.025); UMIC TRIGGER UACC YES; Urine Blood Small (1+) (Negative); Urine Ketones 15 mg/dL (Negative); Urine Protein Negative (Neg-Trace)
[2023-08-27 11:50] LABS: Bacteria Urine None Seen (None Seen); Hyaline Casts Urine 0-2 /LPF (0-2); Squamous Epithelial Cell Urine 0-2 /HPF (0-2); WBC Urine 0-5 /HPF (0-5)
[2023-08-27] MEDS: Capsaicin 0.025% Cream 60 GM TUBE 1 APPL TOPICAL (12:00)
[2023-08-27 12:33] VITALS: BP 122/79; PULSE 60; RESP 18; TEMP 36.9; O2SAT 99
== END 2023-08-27 12:35 | disposition home or self-care (01) ==
PROVIDERS: Emergency Provider Student in an Organized Health Care Education/Training Program
DX: R11.10 Vomiting, unspecified (principal); F12.29 Cannabis dependence with unspecified cannabis-induced disorder; E87.6 Hypokalemia; R11.2 Nausea with vomiting, unspecified; Z79.899 Other long term (current) drug therapy
CPT/HCPCS: 36415; 80048; 80076; 81001; 83690; 83735; 85025; 96361; 96374; 96375; 96376; 99284; J1200; J1630; J2060; J3480

== ENCOUNTER 2024-08-27 05:42 | Emergency (ER) | payer MEDICAID, SELFPAY ==
--- NOTE | 2024-08-27 | ECG_ITS ---
Test Reason : DIZZINESS Blood Pressure : */* mmHG Vent. Rate : 63 BPM Atrial Rate : 63 BPM P-R Int : 148 ms QRS Dur : 92 ms QT Int : 410 ms P-R-T Axes : 43 57 40 degrees QTcB Int : 419 ms Normal sinus rhythm Normal ECG When compared with ECG of 26-Aug-2023 08:47, Nonspecific T wave abnormality no longer evident in Anterior leads Referred By: Generic ED Physician Electronically Signed By: ANABELLA CARTAGENA
[2024-08-27 05:53] VITALS: BP 130/76; PULSE 70; RESP 17; TEMP 36.9; O2SAT 100; BMI 26.4
[2024-08-27 06:22] LABS: Hematocrit 39.9 % (37.0-47.0); Hemoglobin 13.3 g/dl (12.0-16.0); Imm Gran Abs Auto 0.02 X10*3/uL (0.00-0.03); Imm Gran Pct Auto 0.2 % (0.0-0.4); Lymphocytes Absolute Auto 3.5 X10*3/uL (1.2-4.9); MANUAL DIFF FLAG NO; Mean Corpuscular HGB Conc 33.3 g/dl (31.0-35.0); Mean Corpuscular Hemoglobin 29.0 pg (27.0-33.0); Mean Corpuscular Volume 87.1 fL (80.0-98.0); NRBC Abs Auto 0.000 X10*3/uL (0.0-0.012); NRBC Pct Auto 0.0 /100WBC (0.0-0.2); Platelet Count 287 X10*3/uL (160-400); Red Blood Count 4.58 X10*6/uL (4.20-5.50); White Blood Count 8.5 X10*3/uL (4.8-10.8)
[2024-08-27 06:24] LABS: IDNOW Serial# 55D5AD1C; Strep A Nucleic Acid Positive (Negative)
[2024-08-27 06:45] LABS: Alanine Aminotransferase 10 U/L (0-31); Albumin Level 4.5 g/dL (3.5-5.0); Alkaline Phosphatase 55 U/L (39-117); Anion Gap 13 (12-20); Aspartate Amino Transferase 17 U/L (5-31); Blood Urea Nitrogen 16 mg/dL (9-16); Calcium 9.2 mg/dL (8.4-10.2); Carbon Dioxide 28 mmol/L (22-29); Chloride 105 mmol/L (96-108); Creatinine Clr Calc Pharmacy 88.1; Estimated Glomerular Filt Rate > 60; Lipase 23 U/L (8-78); Potassium 3.6 mmol/L (3.3-5.1); Sodium 142 mmol/L (135-145); Total Protein 7.4 g/dL (6.5-8.0)
[2024-08-27 06:57] VITALS: BP 143/78; PULSE 70; RESP 14; TEMP 36.6; O2SAT 100
[2024-08-27 06:57] LABS: Resp Syncy Virus RNA Qual PCR NEGATIVE (Negative); SARS COV2 PCR INHOUSE NEGATIVE (Negative)
--- NOTE | 2024-08-27 07:04 | ED.GENADULT ---
HPI - General Adult General Chief complaint: Headache Stated complaint: dizziness + vomiting + difficulty breathing Time Seen by Provider: 08/27/24 06:58 Source: patient, family, old records reviewed and pharmacognosist Mode of arrival: ambulatory Limitations: no limitations History of Present Illness ED Provider: THI SHETH narrative: 24 yo female with no PMH around 1 hour ago started with abrupt onset fevers, chills, sweats, n/v and she became sweaty with the vomiting, headaches. She states no sick contacts, travel, she has never h ad this before. No meds taken at home. She states she feels like she drank alcohol and her whole body is sick but she didn't drink alcohol. complaint: abrupt onset not feeling well Onset (ago): minute(s) (30) Location: head, back, left, right, upper extremity and lower extremity Radiation: non-radiation Severity: severe Quality: aching Pain Consistency: constant Relieving factors: none Exacerbating factors: movement Associated symptoms: fever/chills, headaches, loss of appetite, malaise, nausea/vomiting and weakness Treatments prior to arrival: none Related Data Previous Rx's ?Medication ?Instructions ?Recorded promethazine 25 mg rectal 25 mg IN Q6H PRN nausea and 08/26/23 suppository vomiting #12 ea amoxicillin 500 mg capsule 500 mg PO BID 10 days #19 caps 08/27/24 ibuprofen 600 mg tablet 600 mg PO Q6H PRN pain #30 tabs 08/27/24 ondansetron 4 mg disintegrating 4 mg PO Q8H PRN nausea and 08/27/24 tablet vomiting #20 tabs Allergies Allergy/AdvReac Type Severity Reaction Status Date / Time No Known Allergies Allergy Verified 08/27/24 05:57 Review of Systems Review of Systems: Constitutional : positive Fever, positive Chills, positive fatigue, positive Malaise ENT/Mouth : positive sore throat, no runny nose Eyes: No Discharge Cardiovascular : No Chest Pain, No SOB Respiratory : No Cough, No Sputum Gastrointestinal : No Nausea, No Vomiting, No Diarrhea Genitourinary : No Dysuria, No Urinary Frequency Musculoskeletal : positive Myalgia Skin : No rash Neuro : pos Headache, pos weakness Yes all other systems are reviewed and are negative [facility] Past Medical History Attestation statement: The following information was validated with the patient. Source: old records reviewed Medical History No known health problems Surgical History No history of previous surgery Social History Social History Household Members: Family Housing: Apartment Are you a primary floor care technician to a significant other at home: No Do you presently have visiting nurse or other home services: No Alcohol intake: never Patient Tobacco Use Status: Never used Tobacco Substance Use Type: Marijuana Advance Directives: No Advance Directives Information Provided: Yes Do you have a plan to hurt others: No Plan service: No Current occupational status: unemployed Physical Exam ED Vital Signs: Vital Signs - 24 hr 08/27/24 05:53 08/27/24 06:57 Temperature 98.5 F 98 F Pulse Rate 70 70 Respiratory Rate 17 14 Blood Pressure 130/76 143/78 H Pulse Oximetry 100 100 Oxygen Delivery Method Room Air Room Air BMI result Body Mass Index 26.4 Appearance: Alert. Oriented X3. No acute distress. Eyes: Pupils equal, round and reactive to light. ENT: Pharynx bilateral tonsils are red, soft palate petechis, exudates on L tonsil, uvula is midline Neck: Normal inspection. Neck supple. no menigeal signs CVS: Normal heart rate and rhythm. Pulses normal. Respiratory: No respiratory distress. Breath sounds normal. Abdomen: Soft and nontender. Skin: Skin warm and dry. Normal skin color. Normal skin turgor. Extremities: No lower extremity edema. Neuro: Oriented X 3. No motor deficit. No sensory deficit. CN2-12 intact Medications Administered Discontinued Medications Generic Name Dose Route Start Last Admin Trade Name Freq PRN Reason Stop Dose Admin Amoxicillin 500 mg 08/27/24 07:18 08/27/24 07:40 Amoxicillin 500 Mg Capsule PO 08/27/24 07:19 500 mg ONCE ONE Administration Lactated Ringer's 1,000 mls @ 999 mls/hr 08/27/24 07:17 08/27/24 08:21 Lr IV 08/27/24 08:17 Infused .Q1H1M ONE Infusion Acetaminophen 1,000 mg in 100 mls @ 400 mls/hr 08/27/24 07:17 08/27/24 08:21 Ofirmev IV 08/27/24 07:31 Infused ONCE ONE Infusion Ketorolac Tromethamine 15 mg 08/27/24 07:17 08/27/24 07:40 Ketorolac Tromethamine 15 Mg/Ml Vial IVPUSH 08/27/24 07:18 15 mg ONCE ONE Administration Ondansetron HCl 4 mg 08/27/24 06:54 08/27/24 06:56 Ondansetron Odt 4 Mg Tab.Rapdis TRANSLINGU 08/27/24 06:55 4 mg ONCE ONE Administration Ondansetron HCl 4 mg 08/27/24 07:17 08/27/24 07:40 Ondansetron Hcl 4 Mg/2 Ml Vial IVPUSH 08/27/24 07:18 4 mg ONCE ONE Administration Medical Decision Making Medical Decision Making [facility] Narrative: 24 yo female with no sig PMH here with c/o diffuse body aches, chills, fevers, n/v - on exam not toxic, has ?strep pharyngitis based off clinical picture could also be COVID or flu. She has no meningeal signs on exam. At this time will hydrate and give toradol/tylenol and reassess. No concern for deeper space infection on exam no signs of abscess or [employer] Differential Diagnosis Differential Diagnoses: The differential diagnosis associated with the presentation includes viral syndrome, strep throat, anemia, dehydration Admission/Observation Consideration of admission/observation: Escalation of care including admission/observation considered not toxic, tolerating PO stable for DC Lab Data [facility] Lab Attestation statement: I reviewed the patient's lab results. 08/27/24 06:14 08/27/24 06:14 Labs: Lab Results 08/27/24 Range/Units 06:14 WBC 8.5 (4.8-10.8) X10*3/uL RBC 4.58 (4.20-5.50) X10*6/uL Hgb 13.3 (12.0-16.0) g/dl Hct 39.9 (37.0-47.0) % MCV 87.1 (80.0-98.0) fL MCH 29.0 (27.0-33.0) pg MCHC 33.3 (31.0-35.0) g/dl RDW 13.7 (11.0-16.0) % Plt Count 287 (160-400) X10*3/uL MPV 9.6 (9.4-12.3) fL Immature Gran % (Auto) 0.2 (0.0-0.4) % Neut % (Auto) 51.9 (45-73) % Lymph % (Auto) 40.8 H (20-40) % Yell % (Auto) 6.1 (2-11) % Eos % (Auto) 0.6 (0-4) % Baso % (Auto) 0.4 (0-2) % Lymph # (Auto) 3.5 (1.2-4.9) X10*3/uL Yell # (Auto) 0.5 (0.1-1.2) X10*3/uL Eos # (Auto) 0.1 (0.0-0.4) X10*3/uL Baso # (Auto) 0.0 (0.0-0.2) X10*3/uL Abs Immat Gran (auto) 0.02 (0.00-0.03) X10*3/uL Absolute Neuts (auto) 4.4 (2.0-8.3) x10*3/uL Absolute Nucleated RBC 0.000 (0.0-0.012) X10*3/uL Nucleated RBC % (auto) 0.0 (0.0-0.2) /100WBC Sodium 142 (135-145) mmol/L Potassium 3.6 (3.3-5.1) mmol/L Chloride 105 (96-108) mmol/L Carbon Dioxide 28 (22-29) mmol/L Anion Gap 13 (12-20) BUN 16 (9-16) mg/dL Creatinine 0.84 (0.5-1.4) mg/dL Estim Creat Clear Calc 88.1 Estimated GFR > 60 Random Glucose 129 H (60-115) mg/dL Calcium 9.2 (8.4-10.2) mg/dL Total Bilirubin 0.2 (0.0-1.0) mg/dL AST 17 (5-31) U/L ALT 10 (0-31) U/L Alkaline Phosphatase 55 (39-117) U/L Total Protein 7.4 (6.5-8.0) g/dL Albumin 4.5 (3.5-5.0) g/dL Lipase 23 (8-78) U/L Beta HCG, Quant < 2 mIU/mL Influenza Type A (PCR) NEGATIVE (Negative) Influenza Type B (PCR) NEGATIVE (Negative) RSV RNA Qual (PCR) NEGATIVE (Negative) SARS-CoV-2 RNA (RT-PCR) NEGATIVE (Negative) S. pyogenes GrpA VINITA Positive A (Negative) Independent Interpretation I performed an independent interpretation of an: EKG Interpretation: Rate: 63 Rhythm: NSR [place]: normal Normal P waves. Normal [place]OH[place]. Normal QRS complex. ST T wave : normal no [place] qTC: 419 prior studies: no acute ischemia The study has been interpreted contemporaneously by me. . Independent Historian Clinical information obtained from an independent historian. History obtained from or confirmed by: Parent External Record Review External record reviewed: Outpatient record Prescription Management I considered prescription management with: Antibiotic and Other Discharge Plan Discharge Clinical Impression: Acute streptococcal pharyngitis Patient Disposition: Home, Self-Care Instructions: Strep Throat (ED) Additional Instructions: rest and stay hydrated return for any worsening symptoms or concerns alternate tylenol and motrin finish all antibiotics throw away toothbrush after 24 hours Prescriptions: New amoxicillin 500 mg capsule 500 mg PO BID 10 Days Qty: 19 0RF ibuprofen 600 mg tablet 600 mg PO Q6H PRN (Reason: pain) Qty: 30 0RF ondansetron 4 mg tablet,disintegrating 4 mg PO Q8H PRN (Reason: nausea and vomiting) Qty: 20 0RF No Action promethazine 25 mg suppository 25 mg IN Q6H PRN (Reason: nausea and vomiting) Qty: 12 0RF Print Language: Citizen [place]
[2024-08-27] MEDS: Lactated Ringers 1,000 ML 999 ML IV (07:40)
[2024-08-27 09:14] VITALS: BP 143/78; PULSE 70; RESP 14; TEMP 36.6; O2SAT 100
== END 2024-08-27 09:15 | disposition home or self-care (01) ==
PROVIDERS: Emergency Provider Emergency Medicine
DX: J02.0 Streptococcal pharyngitis (principal); R42 Dizziness and giddiness; R06.02 Shortness of breath; R11.2 Nausea with vomiting, unspecified; R50.9 Fever, unspecified; R51.9 Headache, unspecified; Z79.899 Other long term (current) drug therapy; Z03.818 Encounter for observation for suspected exposure to other biological agents ruled out
CPT/HCPCS: 36415; 80053; 83690; 84702; 85025; 87637; 87651; 93005; 96361; 96374; 96375; 99284; J0131; J1885; J2405; J7120

== ENCOUNTER → 2024-08-27 06:04 | Outpatient (BNV) | payer OTHER, SELFPAY | PROVIDERS: Emergency Provider Emergency Medicine; Visit Provider Internal Medicine | DX: R42 Dizziness and giddiness (principal) | CPT/HCPCS: 93010 ==